=== PATIENT | female | born 1985 | race Caucasian/White ===

== ENCOUNTER 2023-02-15 12:29 | Outpatient (OUT) | payer OTHER, SELFPAY ==
--- NOTE | 2023-02-15 12:32 | US_ITS ---
The [address] [address] Patient Name: ELIS GUTIÉRREZ MRN: [id number] date: 1985 Sex: F Assigned Patient Location: Current Patient Location: LAB Accession/Order Number: [id number] Exam Date: 02/15/2023 12:32 Report Date: 02/15/2023 16:19 At the request of: ADENIKE GUILLORY Procedure: US OB <= 14 weeks fetus EXAMINATION: US OB <= 14 weeks fetus HISTORY: DATING COMPARISON: No relevant comparison available. FINDINGS: GESTATIONAL SAC: Present and normal appearing. YOLK SAC: Present and normal appearing. POLE: Present and normal appearing. CARDIAC: Present. UTERUS: Normal size and appearance. OVARIES: Right: Not seen. Left: Normal. CERVIX: (Not measured) cm in length and closed. CUL-DE-SAC: Normal. OTHER: None. AGE BY LMP: 13 weeks 1 day STEVE BY LMP: 08/22/2023 AGE BY US CRL: 12 weeks 5 days STEVE BY US CRL: 08/25/2023 US/US OB <= 14 weeks fetus IMPRESSION: 1. Single live intrauterine . Electronically authenticated by: RICH KNOTT Date: 02/15/2023 16:19
== END 2023-02-15 12:30 | disposition home or self-care (01) ==
LOC: US 12:29
PROVIDERS: PCP Internal Medicine; Visit Provider Obstetrics & Gynecology
DX: Z34.91 Encounter for supervision of normal pregnancy, unspecified, first trimester (principal); Z3A.14 14 weeks gestation of pregnancy; Z31.430 Encounter of female for testing for genetic disease carrier status for procreative management; N91.2 Amenorrhea, unspecified; N92.6 Irregular menstruation, unspecified
CPT/HCPCS: 36415; 76801; 83036; 84443; 85025; 86592; 86706; 86762; 86803; 86850; 86900; 86901; 87086; 87389

== ENCOUNTER 2023-02-15 13:44 | Outpatient (OUT) | payer OTHER, SELFPAY ==
[2023-02-15 14:28] LABS: Basophils Absolute Auto 0.1 10^3/uL (0.0-0.1); Basophils Percent Auto 0.5 % (0.2-2.0); Eosinophils Absolute Auto 0.1 10^3/uL (0.0-0.7); Eosinophils Percent Auto 0.7 % (0.9-7.0); Hematocrit 40.6 % (36.0-48.0); Hemoglobin 13.7 g/dL (12.0-16.0); Immature Granulocytes Abs Auto 0.15 10^3/uL (0.00-0.03); Immature Granulocytes Pct Auto 1.4 % (0.0-0.5); Lymphocytes Absolute Auto 1.6 10^3/uL (1.2-3.8); Lymphocytes Percent Auto 14.8 % (20.5-60.0); Mean Corpuscular HGB Conc 33.7 g/dL (29.9-35.2); Mean Corpuscular Volume 88.8 fL (81.0-99.0); Mean Platelet Volume 10.3 fL (9.5-13.5); Monocytes Absolute Auto 0.6 10^3/uL (0.3-0.8); Monocytes Percent Auto 5.3 % (1.7-12.0); Neutrophils Absolute Auto 8.5 10^3/uL (1.4-6.5); Neutrophils Percent Auto 77.3 % (43.0-75.0); Platelet Count 299 10^3/uL (150-450); Red Blood Count 4.57 10^6/uL (4.20-5.40); Red Cell Distribution Width 13.6 % (11.0-15.0)
[2023-02-15 14:33] LABS: Estimated Average Glucose 100 mg/dL; Glycohemoglobin A1C 5.1 % (4.5-6.2)
[2023-02-15 15:35] LABS: Thyroid Stimulating Hormone 1.881 uIU/mL (0.358-3.740)
[2023-02-16 06:10] LABS: HBsAg Screen Negative (Negative); HCV Ab Non Reactive (Non Reactive); HIV Ab/p24 Ag Screen Non Reactive (Non Reactive)
[2023-02-16 08:11] LABS: Rubella Antibodies, IgG 2.18 index (Immune >0.99)
== END 2023-02-15 13:45 | disposition home or self-care (01) ==
LOC: LAB 13:45
PROVIDERS: PCP Internal Medicine; Visit Provider Obstetrics & Gynecology
DX: Z34.81 Encounter for supervision of other normal pregnancy, first trimester (principal); Z31.430 Encounter of female for testing for genetic disease carrier status for procreative management; N91.2 Amenorrhea, unspecified
CPT/HCPCS: 36415; 83036; 84443; 85025; 86592; 86706; 86762; 86803; 86850; 86900; 86901; 87086; 87389

== ENCOUNTER 2023-03-07 21:32 | Outpatient (REF) | payer OTHER, SELFPAY ==
[2023-03-13 13:10] LABS: Age Gdln ACOG Testing Note (.); HPV Aptima Negative (Negative); IGP, Aptima HPV, rfx 16/18,45 Note (.)
== END 2023-03-07 21:33 | disposition home or self-care (01) ==
LOC: LAB 21:32
PROVIDERS: PCP Internal Medicine; Visit Provider Obstetrics & Gynecology
DX: Z01.419 Encounter for gynecological examination (general) (routine) without abnormal findings (principal)
CPT/HCPCS: 87624; G0145

== ENCOUNTER 2023-06-04 14:08 | Outpatient (OUT) | payer OTHER, SELFPAY ==
[2023-06-04 15:22] LABS: Basophils Absolute Auto 0.1 10^3/uL (0.0-0.1); Basophils Percent Auto 0.3 % (0.2-2.0); Eosinophils Absolute Auto 0.2 10^3/uL (0.0-0.7); Eosinophils Percent Auto 1.2 % (0.9-7.0); Hematocrit 34.2 % (36.0-48.0); Hemoglobin 11.3 g/dL (12.0-16.0); Immature Granulocytes Abs Auto 1.43 10^3/uL (0.00-0.03); Immature Granulocytes Pct Auto 9.3 % (0.0-0.5); Lymphocytes Absolute Auto 1.9 10^3/uL (1.2-3.8); Lymphocytes Percent Auto 12.1 % (20.5-60.0); Mean Corpuscular Hemoglobin 30.1 pg (26.7-34.0); Mean Platelet Volume 10.4 fL (9.5-13.5); Monocytes Absolute Auto 0.8 10^3/uL (0.3-0.8); Monocytes Percent Auto 5.3 % (1.7-12.0); Neutrophils Absolute Auto 11.1 10^3/uL (1.4-6.5); Neutrophils Percent Auto 71.8 % (43.0-75.0); Platelet Count 236 10^3/uL (150-450); Red Blood Count 3.76 10^6/uL (4.20-5.40); Red Cell Distribution Width 14.4 % (11.0-15.0); White Blood Count 15.4 10^3/uL (4.0-11.0)
[2023-06-04 16:51] LABS: Glucose 1 Hour 116 mg/dL
== END 2023-06-04 14:09 | disposition home or self-care (01) ==
LOC: LAB 14:09
PROVIDERS: PCP Internal Medicine; Visit Provider Obstetrics & Gynecology
DX: Z34.92 Encounter for supervision of normal pregnancy, unspecified, second trimester (principal)
CPT/HCPCS: 36415; 82950; 85025

== ENCOUNTER 2023-06-27 07:08 | Outpatient (OUT) | payer OTHER, SELFPAY ==
--- NOTE | 2023-06-27 | US_ITS ---
[address] [address] Patient Name: ELIS GUTIÉRREZ MRN: [id number] date: 1985 Sex: F Assigned Patient Location: [facility] Current Patient Location: Accession/Order Number: [id number] Exam Date: 06/27/2023 11:30 Report Date: 06/28/2023 02:44 At the request of: ADENIKE GUILLORY Procedure: US OB BPP w non-stress EXAMINATION: US OB BPP w non-stress HISTORY: THIRD TRIMESTER Z34.93 COMPARISON: Ultrasound OB 02/15/2023 TECHNIQUE: Ultrasound biophysical profile was performed in the radiology department. BREATHING MOVEMENTS: 0.0 GROSS BODY MOVEMENTS: 2.0 TONE: 2.0 QUALITATIVE AMNIOTIC FLUID VOLUME: 2.0 PRESENTATION: CEPHALIC HEART RATE: 133.7 bpm bpm. AMNIOTIC FLUID VOLUME: 15.5 cm GESTATIONAL AGE: 32 weeks 0 days CONCLUSION: Total biophysical profile score 6.0. Electronically authenticated by: RICH KNOTT Date: 06/28/2023 02:44
[2023-06-27 12:13] VITALS: BP 130/72; PULSE 84
== END 2023-06-27 12:40 | disposition home or self-care (01) ==
LOC: US 07:08 → FBC 11:22
PROVIDERS: PCP Internal Medicine; Visit Provider Obstetrics & Gynecology
DX: Z34.93 Encounter for supervision of normal pregnancy, unspecified, third trimester (principal); Z3A.32 32 weeks gestation of pregnancy
CPT/HCPCS: 76818

== ENCOUNTER 2023-06-28 08:07 | Outpatient (OUT) | payer OTHER, SELFPAY ==
--- NOTE | 2023-06-28 09:34 | US_ITS ---
[address] [address] Patient Name: ELIS GUTIÉRREZ MRN: [id number] date: 1985 Sex: F Assigned Patient Location: [facility] Current Patient Location: Accession/Order Number: [id number] Exam Date: 06/28/2023 10:00 Report Date: 06/28/2023 10:44 At the request of: ADENIKE GUILLORY Procedure: US OB BPP w non-stress EXAM: US OB BPP w non-stress HISTORY: . ama . COMPARISON: None. FINDINGS: There is evidence of an intrauterine in the cephalic presentation with a heart rate of 132. Amniotic fluid index is 15 cm. breathing 2, tone 2, movement 2, and amniotic fluid volume 2 for a score of 8/8. US/US OB BPP w non-stress IMPRESSION: 1. Intrauterine in the cephalic presentation with a heart rate of 132. 2. Biophysical profile 8/8. Electronically authenticated by: ANDRIY VELARDE Date: 06/28/2023 10:44
[2023-06-28 09:40] VITALS: BP 134/90; PULSE 100
[2023-06-28 09:55] VITALS: BP 142/83; PULSE 101
--- OUTSIDE RECORDS SUMMARY | 2023-07-24 23:35 | XMS_ITS | CCD ---
Author Name Unknown Address [address] [place] [address] Organization [facility] Care Team Providers Care [place] Worker Name Role Phone WEST, DR ANDRIY Polo Consulting Unavailable FAWWAD, KHAN Admitting Unavailable FAWWAD, KHAN Primary Care Unavailable FAWWAD, KHAN Attending Unavailable FAWWAD, KHAN Consulting Unavailable FAWWAD, KHAN Attending Unavailable FAWWAD, KHAN Admitting Unavailable FAWWAD, KHAN Primary Care Unavailable FAWWAD, KHAN Consulting Unavailable KARASIBerto, DR RIVERA Consulting Unavailable KARASIK, DR RIVERA Attending Unavailable KARASIK, DR RIVERA Admitting Unavailable Sivan, Adenike Attending Provider ANGELIC KAUR Attending Unavailable SIVAN, ADENIKE Attending Unavailable SIVAN, ADENIKE Attending Unavailable Fawwad, Khan Primary Care Unavailable Sivan, Adenike Attending Unavailable Sivan, Adenike Admitting Unavailable Problems Active Problems Problem Classification Problem Date Documented Da te Episodic/Chronic Headache; including migraine (4 sources) Migraine, unspecified, not intractable, without status migrainosus; Translations: [MIGRAINE UNS NOT INTRACT W/O SM] Onset: 03-18-2021 Chronic Mood disorders (1 source) Major depressive disorder, single episode, severe without psychotic features; Translations: [WOLFGANG DEPRESS 1 EPIS SEV W/O PSYCHOT] Onset: 02-01-2021 Chronic Other and delivery including normal (1 source) Encounter for supervision of normal , unspecified, third trimester; Translations: [Encounter for supervision of normal , unspecified, third trimester] Onset: 07-04-2023 Episodic Other screening for suspected conditions (not mental disorders or infectious disease) (6 sources) Encounter for screening for lipoid disorders; Translations: [Encounter for screening for diabetes mellitus] Onset: 09-17-2020 Episodic Past or Other Problems Problem Classification Problem Date Documented Date Episodic/Chronic Immunizations and screening for infectious disease (1 source) Encounter for screening for human papillomavirus (HPV); Translations: [ENC SCREENING HUMAN PAPILLOMAVIRUS] Onset: 09-20-2020 Episodic Results Test Name Value Interpretation Reference Range Karo mak Fibrinogenon 07-04-2023 Fibrinogen 668 mg/dL High 200-393 [facility] Comment on above: Result Comment: A he matocrit value greater than 55% may lead to inaccurate results in coagulation testing. Patients having hematocrit values >55% require a special collection tube for coagulation studies. Please contact the laboratory at [phone] for redraw instructions. PERFORMED BY: [place] [id number] PATHOLOGIST [employer]MI[employer] LETHA DOMÍNGUEZ M.D. Performed By: #### F IB-C #### [address] Fibrinogen [Mass/volume] in Platelet poor plasma by Coagulation assayOrdered By: Adenike Finnegan on 07-04-2023 Fibrinogen Coag (PPP) [Mass/Vol] 668 mg/dL 200 -393 [facility] Comment on above: A hematocrit value g reater than 55% may lead to inaccurate results in coagulation testing. Patients having hematocrit values >55% require a special collection tube for coagulation studies. Please contact the laboratory at [phone] HEAD WO CONon 03-18-2021 CT HEAD WO CON EXAMINATION: CT HEAD WO CON, 03/18/2021 1:25 PM EDT HISTORY: Migraine , blurred vision COMPARISON: None. TECHNIQUE: CT scan of the head was performed without IV contrast. CT dose reduction technique was used, including Automated Exposure Control. FINDINGS: BRAIN: No edema, hemorrhage, mass, acute infarction, or inappropriate atrophy. CSF SPACES: No hydrocephalus, subarachnoid hemorrhage, or mass. Appropriate for age. SKULL: No fracture or mass. Areas of endosteal scalloping in the inner table possibly related to arachnoid granulations SINUSES: No significant mucosal thickening or fluid on the limited views. ORBITS: No appreciable abnormality on the limited views. OTHER: Multiple well-circumscribed scalp masses with calcifications of unknown etiology, the largest visualized on axial image 46 on the right measuring 1.4 cm IMPRESSION: No acute intracranial abnormality Partially calcified scalp masses, clinically correlate Electronically authenticated by: ANDRIY HIRSCH Date: 2021-03-18 17:02 Normal [facility] CBC AUTO DIFFon 01-27-2021 BASO # 0.1 103/ul Normal 0.0-0.1 [facility] Comment on above: Performed By: #### C BC #### [facility] [address] [id number] Jodi Taty Basophils/100 WBC (Bld) 1.1 % Normal 0.2-2.0 [facility] Comment on above: Performed By: #### C BC #### [facility] [address] [place] [address] Jodi Taty EO # 0.2 103/ul Normal 0.0-0.7 [facility] Comment on above: Performed By: #### C BC #### [facility] [address] [place], [place] [id number] Jodi Taty Eosinophils/100 WBC (Bld) 2.0 % Normal 0.9-7.0 [facility] Comment on above: Performed By: #### C BC #### [facility] [address] [place], [place] [address] Jodi Taty Erythrocyte distribution wid th (RBC) [Ratio] 13.8 % Normal 11.0-15.0 [facility] Comment on above: Performed By: #### C BC #### [facility] [address] [place], [place] [address] Jodi Taty Hematocrit (Bld) [Volume fraction] 47.4 % Normal 3 6.0-48.0 [facility] Comment on above: Performed By: #### C BC #### [facility] [address] [place], [place] [address] Jodi Taty Hemoglobin (Bld) [Mass/Vol] 15.3 g/dL Normal 12.0-16. 0 [facility] Comment on above: Performed By: #### C BC #### [facility] [address] [id number] Jodi Taty IG # 0.26 10e3/ul Critically high 0.00-0.03 [facility] Comment on above: Performed By: #### C BC #### [facility] [address] [place], [place] [address] Jodi Taty IG % 2.3 % Critically high 0.0-0.5 [facility] Comment on above: Performed By: #### C BC #### [facility] [address] [place], [place] [address] Jodi Taty LYMPH # 2.4 103/ul Normal 1.2-3.8 [facility] Comment on above: Performed By: #### C BC #### [facility] [address] [place], [place] [address] Jodi Taty Lymphocytes/100 WBC (Bld) 21.4 % Normal 20.5-60.0 [facility] Comment on above: Performed By: #### C BC #### [facility] [address] [place] [address] Jodi Taty MANUAL DIFF REQ NO Normal [facility] Comment on above: Performed By: #### C BC #### [facility] [address] [place], [place] [address] Jodi Taty MCH (RBC) [Entitic mass] 29.5 pg Normal 26.7-34.0 [facility] Comment on above: Performed By: #### C BC #### [facility] [address] [place], [place] [address] Jodi Taty MCHC (RBC) [Mass/Vol] 32.3 g/dL Normal 29.9-35.2 [facility] Comment on above: Performed By: #### C BC #### [facility] [address] [place], [place] [address] Jodi Taty MCV (RBC) [Entitic vol] 91.5 fL Normal 81.0-99.0 [facility] Comment on above: Performed By: #### C BC #### [facility] [address] [place] [address] Jodi Taty MONO # 0.6 103/ul Normal 0.3-0.8 [facility] Comment on above: Performed By: #### C BC #### [facility] [address] [place], [place] [address] Jodi Posey Monocytes/100 WBC (Bld) 5.3 % Normal 1.7-12.0 [facility] Comment on above: Performed By: #### C BC #### [facility] [address] [place], [place] [address] Jodi Posey NEUT # 7.6 103/ul Critically high 1.4-6.5 [facility] Comment on above: Performed By: #### C BC #### [facility] [address] [place], [place] [address] Jodi Posey Neutrophils/100 WBC (Bld) 67.9 % Normal 43.0-75.0 [facility] Comment on above: Performed By: #### C BC #### [facility] [address] [place], [place] [address] Jodi Posey Platelet mean volume (Bld) [ Entitic vol] 11.2 fL Normal 9.5-13.5 [facility] Comment on above: Performed By: #### C BC #### [facility] [address] [place], [place] [address] Jodi Posey PLT 277 103/ul Normal 150-450 [facility] Comment on above: Performed By: #### C BC #### [facility] [address] [place], [place] [address] Jodi Posey RBC 5.18 106/ul Normal 4.20-5.40 [facility] Comment on above: Performed By: #### C BC #### [facility] [address] [place], [place] [address] Jodi Taty WBC 11.3 103/ul Critically high 4.0-11.0 The [facility] Comment on above: Performed By: #### C BC #### [facility] [address] [place], [place] [address] Jodi Posey GLYCOHEMOGLOBIN A1Con 2020 ADA RECOMMENDATION ADA THERAPEUTIC TARG ET 6.0 - 7.0 ACTION SUGGESTED > 7.0 Normal [facility] Comment on above: Performed By: #### A 1C #### [facility] [address] [place], [place] [address] Jodi Taty Glucose [Mass/Vol] 123 mg/dL Normal [facility] Comment on above: Performed By: #### A 1C #### [facility] [address] [place], [place] [address] Jodi Taty HbA1c (Bld) [Mass fraction] 5.9 % Normal <=6.0 [facility] Comment on above: Performed By: #### A 1C #### [facility] [address] [place] [address] Jodi Taty LIPID PROFILEon 01-27-2021 CHOL-HDL RATIO NORM SEE BELOW Normal [facility] Comment on above: Result Comment: 3.3 - 4.4 LOW RISK 4.4 - 7.1 AVERAGE RISK 7.1 - 11.0 MODERATE RISK >11.0 HIGH RISK Performed By: #### C MP, LIPID, TSH #### [facility] [address] [place] [address] Jodi Taty Cholesterol [Mass/Vol] 185 mg/dL Normal <=200 [facility] Comment on above: Performed By: #### C MP, LIPID, TSH #### [facility] [address] [place] [address] Jodi Taty Cholesterol in HDL [Mass/Vol] 37 mg/dL Normal [facility] Comment on above: Performed By: #### C MP, LIPID, TSH #### [facility] [address] [place] [address] Jodi Taty Cholesterol in LDL [Mass/Vol] 112.4 mg/dL Normal [facility] Comment on above: Performed By: #### C MP, LIPID, TSH #### [facility] [address] [place] [address] Jodi Taty Cholesterol.total/Cholestero l in HDL [Mass ratio] 5.0 {ratio} Normal [facility] Comment on above: Performed By: #### C MP, LIPID, TSH #### [facility] [address] [id number] Jodi Taty HDL NORMAL > or = 60 mg/dl - LO W CARDIOVASCULAR RISK <40 mg/dl - HIGH CARDIOVASCULAR RISK Normal [facility] Comment on above: Performed By: #### C MP, LIPID, TSH #### [facility] [address] [phone] Jodi Taty LDL CALC NORMAL SEE BELOW Normal [facility] Comment on above: Result Comment: <100 mg/dl OPTIMAL 100 - 129 mg/dl NEAR OR ABOVE OPTIMAL 130 - 159 mg/dl BORDERLINE HIGH 160 - 189 mg/dl HIGH >190 mg/dl VERY HIGH Performed By: #### C MP, LIPID, TSH #### [facility] [address] [address] Jodi Taty Triglyceride [Mass/Vol] 178 mg/dL Critically high <=150 [facility] Comment on above: Performed By: #### C MP, LIPID, TSH #### [facility] [address] [address] Jodi Taty VLDL CALC 35.6 mg/dL Normal [facility] Comment on above: Performed By: #### C MP, LIPID, TSH #### [facility] [address] [phone] Jodi Taty PROF 14(COMP METB)on 021 Albumin [Mass/Vol] 3.8 g/dL Normal 3.5-5.0 [facility] Comment on above: Performed By: #### C MP, LIPID, TSH #### [facility] [address] [place], [place] [address] Jodi Taty Albumin/Globulin [Mass ratio] 1.1 {ratio} Normal [facility] Comment on above: Performed By: #### C MP, LIPID, TSH #### [facility] [address] [phone] Jodi Taty ALP [Catalytic activity/Vol] 68 U/L Normal 38-126 [facility] Comment on above: Performed By: #### C MP, LIPID, TSH #### [facility] [address] [place], [place] [address] Jodi Taty ALT [Catalytic activity/Vol] 30 U/L Normal 9-52 [facility] Comment on above: Performed By: #### C MP, LIPID, TSH #### [facility] [address] [address] Jodi Taty Anion gap [Moles/Vol] 12.8 mmol/L Normal [facility] Comment on above: Performed By: #### C MP, LIPID, TSH #### [facility] [address] [address] Jodi Taty AST [Catalytic activity/Vol] 19 U/L Normal 14-36 [facility] Comment on above: Performed By: #### C MP, LIPID, TSH #### [facility] [address] [address] Jodi Taty Bilirubin [Mass/Vol] 0.2 mg/dL Normal 0.2-1.3 [facility] Comment on above: Performed By: #### C MP, LIPID, TSH #### [facility] [address] [place] [address] Jodi Taty Calcium [Mass/Vol] 9.3 mg/dL Normal 8.4-10.2 [facility] Comment on above: Performed By: #### C MP, LIPID, TSH #### [facility] [address] [address] Jodi Taty Chloride [Moles/Vol] 104 mmol/L Normal 98-107 [facility] Comment on above: Performed By: #### C MP, LIPID, TSH #### [facility] [address] [address] Jodi Taty CO2 [Moles/Vol] 29.2 mmol/L Normal 22.0-30.0 [facility] Comment on above: Performed By: #### C MP, LIPID, TSH #### [facility] [address] [address] Jodi Taty Creatinine [Mass/Vol] 0.80 mg/dL Normal 0.52-1.04 [facility] Comment on above: Performed By: #### C MP, LIPID, TSH #### [facility] [address] [place], [place] [address] Jodi Taty EGFR-AF STATELESS >60 Normal >=60 [facility] Comment on above: Performed By: #### C MP, LIPID, TSH #### [facility] [address] [phone] Jodi Taty EGFR-NON AF STATELESS >60 Normal >=60 [facility] Comment on above: Performed By: #### C MP, LIPID, TSH #### [facility] [address] [phone] Jodi Taty Globulin (S) [Mass/Vol] 3.4 g/dL Normal T [facility] Comment on above: Performed By: #### C MP, LIPID, TSH #### [facility] [address] [address] Jodi Taty Glucose [Mass/Vol] 89 mg/dL Normal 74-106 [facility] Comment on above: Performed By: #### C MP, LIPID, TSH #### [facility] [address] [address] Jodi Taty Potassium [Moles/Vol] 4.0 mmol/L Normal 3.4-5.0 [facility] Comment on above: Performed By: #### C MP, LIPID, TSH #### [facility] [address] [phone] Jodi Taty Protein [Mass/Vol] 7.2 g/dL Normal 6.1-8.2 [facility] Comment on above: Performed By: #### C MP, LIPID, TSH #### [facility] [address] [place] [address] Jodi Taty Sodium [Moles/Vol] 142 mmol/L Normal 137-145 [facility] Comment on above: Performed By: #### C MP, LIPID, TSH #### [facility] [address] [phone] Jodi Taty Urea nitrogen [Mass/Vol] 11.0 mg/dL Normal 7.0-17.0 [facility] Comment on above: Performed By: #### C MP, LIPID, TSH #### [facility] [address] [place] [address] Jodi Posey Urea nitrogen/Creatinine [Mass ratio] 13.8 mg/mg Normal [facility] Comment on above: Performed By: #### C MP, LIPID, TSH #### [facility] [address] [place], [place] [address] Jodi Posey TSHon 01-27-2021 TSH 3.187 uIU/mL Normal 0.470-4.680 [facility] Comment on above: Performed By: #### C MP, LIPID, TSH #### [facility] [address] [place] [address] Jodi Posey TSH RANGE SEE BELOW Normal [facility] Comment on above: Result Comment: <0.3 4 UIU/ml HYPERTHYROID 0.34-5.60 UIU/ml EUTHYROID >5.60 UIU/ml HYPOTHYROID Performed By: #### C MP, LIPID, TSH #### [facility] [address] [place] [address] Jodi Posey PAP ACOG PANEL 2: 30 to 65on 09-22-2020 . . Normal [facility] Comment on above: Result Comment: Perf ormed at: WB Performed By: #### [id number] #### [facility] [address] [place] [address] Jodi Posey Age Gdln ACOG Testing 30-65 Normal [facility] Comment on above: Performed By: #### [id number] #### [facility] [address] [place], [place] [address] Jodi Posey DIAGNOSIS: Comment Normal [facility] Comment on above: Result Comment: NEGA TIVE FOR INTRAEPITHELIAL LESION OR MALIGNANCY. MICROORGANISMS MORPHOLOGICALLY CONSISTENT WITH ACTINOMYCES SPECIES ARE PRESENT. SHIFT IN DARI SUGGESTIVE OF BACTERIAL VAGINOSIS. Performed at: WB Performed By: #### [id number] #### [facility] [address] [place] [address] Jodi Posey HPV Aptima Negative Normal Negative [facility] Comment on above: Result Comment: This nucleic acid amplification test detects fourteen high-risk HPV types (16,18,31,33,35,39,45,51,52,56,58,59,66,68) without differentiation. Performed at: =G Performed By: #### [id number] #### [facility] [address] [place] [address] Jodi Posey Methodology: Comment Normal [facility] Comment on above: Result Comment: This liquid based ThinPrep(R) pap test was screened with the use of an image guided system. Performed at: WB Performed By: #### [id number] #### [facility] [address] [address] Jodi Posey Note: Comment Normal [facility] Comment on above: Result Comment: The Pap smear is a screening test designed to aid in the detection of premalignant and malignant conditions of the uterine cervix. It is not a diagnostic procedure and should not be used as the sole means of detecting cervical cancer. Both false-positive and false-negative reports do occur. . Performed at: WB Performed By: #### [id number] #### [facility] [address] [place] [address] Jodi Posey Performed by: Comment Normal [facility] Comment on above: Result Comment: Camila Navarro, Elect Equip Maint Eng (ASCP) Performed at: WB Performed By: #### [id number] #### [facility] [address] [place] [address] Jodi Posey Specimen adequacy: Comment Normal [facility] Comment on above: Result Comment: Sati sfactory for evaluation. No endocervical component is identified. Performed at: WB Performed By: #### [id number] #### [facility] [address] [place], [place] [address] Jodi Posey Encounters Encounter Date Encounter Type Care Provider Facility Start: 07-09-2023 End: 07-09-2023 ambulatory ADENIKE FINNEGAN Not Available Start: 07-04-2023 End: 07-04-2023 ambulatory Shaikh Thu Facility:[facility] Start: 07-04-2023 End: 07-04-2023 ambulatory Adenike Finnegan Work Phone: [facility] Work Phone: Start: 07-04-2023 End: 07-04-2023 Departed Referred Adenike Finnegan Work Phone: [facility] [place] Work Phone: Start: 07-03-2023 End: 07-03-2023 ambulatory ANGELIC KAUR Not Available Start: 06-19-2023 End: 06-19-2023 ambulatory ADENIKE FINNEGAN Not Available Start: 03-18-2021 End: 03-19-[address] ANDRIY HIRSCH Facility:[facility] Start: 02-01-2021 Encounter for genera l adult medical examination without abnormal findings [facility] Start: 01-27-2021 End: 01-28-2021 ambulatory SHAIKH THU Facility:[facility] Start: 01-27-2021 End: 01-28-2021 Encounter for general adult medical examination without abnormal findings [facility] Facility:[facility] Start: 09-17-2020 End: 09-17-[address] NICOLE RIDDLE Facility:[facility] Payers Date Payer Category Payer Self-pay 2023 Unknown [id number] 1985 Unknown [id number] 2.16.84 [id number] 1985 Unknown [id number] .16.84 [id number] 1985 Unknown [id number] .16.84 [id number] 1985 Unknown [id number] 1985 Unknown [id number] 1985 Unknown [id number] 1959 Unknown [id number] 1959 Unknown [id number] Unknown [id number] .16.8 [id number] Social History Date Type Detail Facility Tobacco smoking stat us NHIS Unknown if ever smoked [facility] Work Phone: Start: 1985 Sex Assigned At Female F [facility] Evaluation note Note Date & Type Note Facility Evaluation note No assessment information availa ble [facility] Work Phone: Summary Purpose Family History No Family History Records FoundNo Family History Records FoundNo Family History Records Found Advance Directives No Advanced Directives Records FoundNo Advanced Directives Records FoundNo Advanced Directives Records Found Additional Source Comments INFORMATION SOURCE (unrecogn ized section and content) DATE CREATED AUTHOR 04/02/2021 [facility] DATE CREATED AUTHOR AUTHOR'S ORGANIZ ATION 07/11/2023 [facility] EPIC DATE CREATED AUTHOR AUTHOR'S ORGANIZ ATION 07/13/2023 [facility] Care Teams (unrecognized sec tion and content) Team Status: Inactive Member Role Status Dates Adenike Finnegan Attending Provider Active Goals (unrecognized section and content) Goals may be documented in a n alternate section FOR RECORDS PERTAINING TO PATIENTS WHO ARE OR HAVE BEEN ENROLLED IN A CHEMICAL DEPENDENCY/SUBSTANCEABUSE PROGRAM, SOME INFORMATION MAY BE OMITTED. This clinical summary was aggregated from multiple sources. Caution should be exercised in using it in the provision of clinical care. This summary normalizes information from multiple sources, and as a consequence, information in this document may materially change the coding, format and clinical context of patient data. In addition, data may be omitted in some cases. CLINICAL DECISIONS SHOULD BE BASED ON THE PRIMARY CLINICAL RECORDS. [employer] [facility]. provides no warranty or guarantee of the accuracy or completeness of information in this document.
== END 2023-06-28 10:34 | disposition home or self-care (01) ==
LOC: US 08:08 → FBC 09:33
PROVIDERS: PCP Internal Medicine; Visit Provider Obstetrics & Gynecology
DX: Z34.93 Encounter for supervision of normal pregnancy, unspecified, third trimester (principal)
CPT/HCPCS: 76818

== ENCOUNTER 2023-06-30 07:02 | Outpatient (OUT) | payer OTHER, SELFPAY ==
[2023-06-30 12:20] VITALS: BP 123/81; PULSE 103
--- OUTSIDE RECORDS SUMMARY | 2023-07-24 23:59 | XMS_ITS | CCD ---
Author Name Unknown Address [address] [place] [address] Organization [facility] Care Team Providers Care Seat Builder Name Role Phone WEST, DR ANDRIY Polo Consulting Unavailable FAWWAD, KHAN Admitting Unavailable FAWWAD, KHAN Primary Care Unavailable FAWWAD, KHAN Attending Unavailable FAWWAD, KHAN Consulting Unavailable FAWWAD, KHAN Attending Unavailable FAWWAD, KHAN Admitting Unavailable FAWWAD, KHAN Primary Care Unavailable FAWWAD, KHAN Consulting Unavailable KARASIBerto, DR RIVERA Consulting Unavailable KARASIK, DR RIVERA Attending Unavailable KARASIK, DR RIVERA Admitting Unavailable Sivan, Adenike Attending Provider [phone] ANGELIC KARU Attending Unavailable SIVAN, ADENIKE Attending Unavailable SIVAN, [...] Fibrinogenon 07-04-2023 Fibrinogen 668 mg/dL High 200-393 [facility] Comment on above: Result Comment: A he matocrit value greater than 55% may lead to inaccurate results in coagulation testing. Patients having hematocrit values >55% require a special collection tube for coagulation studies. Please contact the laboratory at [phone] for redraw instructions. PERFORMED BY: [place] [address] PATHOLOGIST HELMINTHOLOGY TEACHER LETHA DOMÍNGUEZ M.D. Performed By: #### F IB-C #### [address] Fibrinogen [Mass/volume] in Platelet poor plasma by Coagulation assayOrdered By: Adenike Finnegan on 07-04-2023 Fibrinogen Coag (PPP) [Mass/Vol] 668 mg/dL 200 -393 [facility] Comment on above: A hematocrit value g reater than 55% may lead to inaccurate results in coagulation testing. Patients having hematocrit values >55% require a special collection tube for coagulation studies. Please contact the laboratory at [phone] HEAD WO CONon [...] ANDRIY HIRSCH Date: 2021-03-18 17:02 Normal [facility] CBC AUTO DIFFon 01-27-2021 BASO # 0.1 103/ul Normal 0.0-0.1 [facility] Comment on above: Performed By: #### C BC #### [facility] [address] [id number] Jodi Taty Basophils/100 WBC (Bld) 1.1 % Normal 0.2-2.0 [facility] Comment on above: Performed By: #### C BC #### [facility] [address] [place] [address] Jodi Taty EO # 0.2 103/ul Normal 0.0-0.7 [facility] Comment on above: Performed By: #### C BC #### [facility] [address] [place], [place] [id number] Jodi Taty Eosinophils/100 WBC (Bld) 2.0 % Normal 0.9-7.0 [facility] Comment on above: Performed By: #### C BC #### [facility] [address] [place], [place] [address] Jodi Taty Erythrocyte distribution wid th (RBC) [Ratio] 13.8 % Normal 11.0-15.0 [facility] Comment on above: Performed By: #### C BC #### [facility] [address] [place], [place] [address] Jodi Taty Hematocrit (Bld) [Volume fraction] 47.4 % Normal 3 6.0-48.0 [facility] Comment on above: Performed By: #### C BC #### [facility] [address] [place], [place] [address] Jodi Taty Hemoglobin (Bld) [Mass/Vol] 15.3 g/dL Normal 12.0-16. 0 [facility] Comment on above: Performed By: #### C BC #### [facility] [address] [address] Jodi Taty IG # 0.26 10e3/ul Critically high 0.00-0.03 [facility] Comment on above: Performed By: #### C BC #### [facility] [address] [place], [place] [address] Jodi Taty IG % 2.3 % Critically high 0.0-0.5 [facility] Comment on above: Performed By: #### C BC #### [facility] [address] [place], [place] [address] Jodi Taty LYMPH # 2.4 103/ul Normal 1.2-3.8 [facility] Comment on above: Performed By: #### C BC #### [facility] [address] [place], [place] [address] Jodi Taty Lymphocytes/100 WBC (Bld) 21.4 % Normal 20.5-60.[address] [facility] Comment on above: Performed By: #### C BC #### [facility] [address] [place] [address] Jodi Taty MANUAL DIFF REQ NO Normal [facility] Comment on above: Performed By: #### C BC #### [facility] [address] [place], [place] [address] Jodi Taty MCH (RBC) [Entitic mass] 29.5 pg Normal 26.7-34.[address] [facility] Comment on above: Performed By: #### C BC #### [facility] [address] [place], [place] [address] Jodi Taty MCHC (RBC) [Mass/Vol] 32.3 g/dL Normal 29.9-35.2 [facility] Comment on above: Performed By: #### C BC #### [facility] [address] [place], [place] [address] Jodi Taty MCV (RBC) [Entitic vol] 91.5 fL Normal 81.0-99.0 [facility] Comment on above: Performed By: #### C BC #### [facility] [address] [place] [address] Jodi Taty MONO # 0.6 103/ul Normal 0.3-0.8 [facility] Comment on above: Performed By: #### C BC #### [facility] [address] [place], [place] [address] Jodi Posey Monocytes/100 WBC (Bld) 5.3 % Normal 1.7-12.0 [facility] Comment on above: Performed By: #### C BC #### [facility] [address] [place], [place] [address] Jodi Posey NEUT # 7.6 103/ul Critically high 1.4-6.5 [facility] Comment on above: Performed By: #### C BC #### [facility] [address] [place], [place] [address] Jodi Posey Neutrophils/100 WBC (Bld) 67.9 % Normal 43.0-75.[address] [facility] Comment on above: Performed By: #### C BC #### [facility] [address] [place], [place] [address] Jodi Posey Platelet mean volume (Bld) [ Entitic vol] 11.2 fL Normal 9.5-13.5 [facility] Comment on above: Performed By: #### C BC #### [facility] [address] [place], [place] [address] Jodi Posey PLT 277 103/ul Normal 150-450 [facility] Comment on above: Performed By: #### C BC #### [facility] [address] [place], [place] [address] Jodi Posey RBC 5.18 106/ul Normal 4.20-5.[address] [facility] Comment on above: Performed By: #### C BC #### [facility] [address] [place], [place] [address] Jodi Taty WBC 11.3 103/ul Critically high 4.0-11.0 [facility] Comment on above: Performed By: #### C BC #### [facility] [address] [place], [place] [address] Jodi Posey GLYCOHEMOGLOBIN A1Con 2020 ADA RECOMMENDATION ADA THERAPEUTIC TARG ET 6.0 - 7.0 ACTION SUGGESTED > 7.0 Normal [facility] Comment on above: Performed By: #### A 1C #### [facility] [address] [place], [place] [address] Jodi Taty Glucose [Mass/Vol] 123 mg/dL Normal [facility] Comment on above: Performed By: #### A 1C #### [facility] [address] [place], [place] [address] Jodi Taty HbA1c (Bld) [Mass fraction] 5.9 % Normal <=6.[address] [facility] Comment on above: Performed By: #### A 1C #### [facility] [address] [place] [address] Jodi Taty LIPID PROFILEon 01-27-2021 CHOL-HDL RATIO NORM SEE BELOW Normal [facility] Comment on above: Result Comment: 3.3 - 4.4 LOW RISK 4.4 - 7.1 AVERAGE RISK 7.1 - 11.0 MODERATE RISK >11.0 HIGH RISK Performed By: #### C MP, LIPID, TSH #### [facility] [address] [place] [address] Jodi Taty Cholesterol [Mass/Vol] 185 mg/dL Normal <=200 [facility] Comment on above: Performed By: #### C MP, LIPID, TSH #### [facility] [address] [place] [address] Jodi Taty Cholesterol in HDL [Mass/Vol] 37 mg/dL Normal [facility] Comment on above: Performed By: #### C MP, LIPID, TSH #### [facility] [address] [place] [address] Jodi Taty Cholesterol in LDL [Mass/Vol] 112.4 mg/dL Normal [facility] Comment on above: Performed By: #### C MP, LIPID, TSH #### [facility] [address] [place] [address] Jodi Taty Cholesterol.total/Cholestero l in HDL [Mass ratio] 5.0 {ratio} Normal [facility] [place] [facility] Comment on above: Performed By: #### C MP, LIPID, TSH #### [facility] [address] [id number] Jodi Taty HDL NORMAL > or = 60 mg/dl - LO W CARDIOVASCULAR RISK <40 mg/dl - HIGH CARDIOVASCULAR RISK Normal [facility] Comment on above: Performed By: #### C MP, LIPID, TSH #### [facility] [address] [address] Jodi Taty LDL CALC NORMAL SEE BELOW Normal [facility] Comment on above: Result Comment: <100 mg/dl OPTIMAL 100 - 129 mg/dl NEAR OR ABOVE OPTIMAL 130 - 159 mg/dl BORDERLINE HIGH 160 - 189 mg/dl HIGH >190 mg/dl VERY HIGH Performed By: #### C MP, LIPID, TSH #### [facility] [address] [address] Jodi Taty Triglyceride [Mass/Vol] 178 mg/dL Critically high <=150 [facility] Comment on above: Performed By: #### C MP, LIPID, TSH #### [facility] [address] [address] Jodi Taty VLDL CALC 35.6 mg/dL Normal [facility] Comment on above: Performed By: #### C MP, LIPID, TSH #### [facility] [address] [address] Jodi Taty PROF 14(COMP METB)on 021 Albumin [Mass/Vol] 3.8 g/dL Normal 3.5-5.0 [facility] Comment on above: Performed By: #### C MP, LIPID, TSH #### [facility] [address] [place], [place] [address] Jodi Taty Albumin/Globulin [Mass ratio] 1.1 {ratio} Normal [facility] Comment on above: Performed By: #### C MP, LIPID, TSH #### [facility] [address] [address] Jodi Taty ALP [Catalytic activity/Vol] 68 U/L Normal 38-126 [facility] Comment on above: Performed By: #### C MP, LIPID, TSH #### [facility] [address] [place], [place] [address] Jodi Taty ALT [Catalytic activity/Vol] 30 U/L Normal 9-[address] [facility] Comment on above: Performed By: #### C MP, LIPID, TSH #### [facility] [address] [address] Jodi Taty Anion gap [Moles/Vol] 12.8 mmol/L Normal Th [facility] Comment on above: Performed By: #### C MP, LIPID, TSH #### [facility] [address] [address] Jodi Taty AST [Catalytic activity/Vol] 19 U/L Normal 14-36 [facility] Comment on above: Performed By: #### C MP, LIPID, TSH #### [facility] [address] [address] Jodi Taty Bilirubin [Mass/Vol] 0.2 mg/dL Normal 0.2-1.[address] [facility] Comment on above: Performed By: #### C MP, LIPID, TSH #### [facility] [address] [place] [address] Jodi Taty Calcium [Mass/Vol] 9.3 mg/dL Normal 8.4-10.2 [facility] Comment on above: Performed By: #### C MP, LIPID, TSH #### [facility] [address] [address] Jodi Taty Chloride [Moles/Vol] 104 mmol/L Normal 98-[address] [facility] Comment on above: Performed By: #### C MP, LIPID, TSH #### [facility] [address] [address] Jodi Taty CO2 [Moles/Vol] 29.2 mmol/L Normal 22.0-30.0 [facility] Comment on above: Performed By: #### C MP, LIPID, TSH #### [facility] [address] [address] Jodi Taty Creatinine [Mass/Vol] 0.80 mg/dL Normal 0.52-1.[address] [facility] Comment on above: Performed By: #### C MP, LIPID, TSH #### [facility] [address] [place], [place] [address] Jodi Taty EGFR-AF SRI LANKAN >60 Normal >=60 [facility] Comment on above: Performed By: #### C MP, LIPID, TSH #### [facility] [address] [address] Jodi Taty EGFR-NON AF SRI LANKAN >60 Normal >=60 [facility] Comment on above: Performed By: #### C MP, LIPID, TSH #### [facility] [address] [phone] Jodi Taty Globulin (S) [Mass/Vol] 3.4 g/dL Normal T [facility] Comment on above: Performed By: #### C MP, LIPID, TSH #### [facility] [address] [address] Jodi Taty Glucose [Mass/Vol] 89 mg/dL Normal 74-[address] [facility] Comment on above: Performed By: #### C MP, LIPID, TSH #### [facility] [address] [address] Jodi Taty Potassium [Moles/Vol] 4.0 mmol/L Normal 3.4-5.[address] [facility] Comment on above: Performed By: #### C MP, LIPID, TSH #### [facility] [address] [address] Jodi Taty Protein [Mass/Vol] 7.2 g/dL Normal 6.1-8.2 [facility] Comment on above: Performed By: #### C MP, LIPID, TSH #### [facility] [address] [place] [address] Jodi Taty Sodium [Moles/Vol] 142 mmol/L Normal 137-[address] [facility] Comment on above: Performed By: #### C MP, LIPID, TSH #### [facility] [address] [address] Jodi Taty Urea nitrogen [Mass/Vol] 11.0 mg/dL Normal 7.0-17.0 [facility] Comment on above: Performed By: #### C MP, LIPID, TSH #### [facility] [address] [place] [address] Jodi Posey Urea nitrogen/Creatinine [Mass ratio] 13.8 mg/mg Normal [facility] Comment on above: Performed By: #### C MP, LIPID, TSH #### [facility] [address] [place], [place] [address] Jodi Posey TSHon 01-27-2021 TSH 3.187 uIU/mL Normal 0.470-4.680 [facility] Comment on above: Performed By: #### C MP, LIPID, TSH #### [facility] [address] [place] [address] Jodi Posey TSH RANGE SEE BELOW Normal [facility] Comment on above: Result Comment: <0.3 4 UIU/ml HYPERTHYROID 0.34-5.60 UIU/ml EUTHYROID >5.60 UIU/ml HYPOTHYROID Performed By: #### C MP, LIPID, TSH #### [facility] [address] [place] [address] Jodi Posey PAP ACOG PANEL 2: 30 to 65on 09-22-2020 . . Normal [facility] Comment on above: Result Comment: Perf ormed at: WB Performed By: #### [id number] #### [facility] [address] [place] [address] Jodi Posey Age Gdln ACOG Testing 30-65 Normal [facility] Comment on above: Performed By: #### [id number] #### [facility] [address] [place], [place] [address] Jodi Posey DIAGNOSIS: Comment Normal [facility] Comment on above: Result Comment: NEGA TIVE FOR INTRAEPITHELIAL LESION OR MALIGNANCY. MICROORGANISMS MORPHOLOGICALLY CONSISTENT WITH ACTINOMYCES SPECIES ARE PRESENT. SHIFT IN DARI SUGGESTIVE OF BACTERIAL VAGINOSIS. Performed at: WB Performed By: #### [id number] #### [facility] [address] [place] [address] Jodi Posey HPV Aptima Negative Normal Negative [facility] Comment on above: Result Comment: This nucleic acid amplification test detects fourteen high-risk HPV types (16,18,31,33,35,39,45,51,52,56,58,59,66,68) without differentiation. Performed at: =G Performed By: #### [id number] #### [facility] [address] [place] [address] Jodi Posey Methodology: Comment Normal [facility] Comment on above: Result Comment: This liquid based ThinPrep(R) pap test was screened with the use of an image guided system. Performed at: WB Performed By: #### [id number] #### [facility] [address] [address] Jodi Posey Note: Comment Normal [facility] [place] [facility] Comment on above: Result Comment: The Pap smear is a screening test designed to aid in the detection of premalignant and malignant conditions of the uterine cervix. It is not a diagnostic procedure and should not be used as the sole means of detecting cervical cancer. Both false-positive and false-negative reports do occur. . Performed at: WB Performed By: #### [id number] #### [facility] [address] [place] [address] Jodi Posey Performed by: Comment Normal [facility] [place] Comment on above: Result Comment: Camila Navarro, Java Consultant (ASCP) Performed at: WB Performed By: #### [id number] #### [facility] [address] [place] [address] Jodi Posey Specimen adequacy: Comment Normal [facility] Comment on above: Result Comment: Sati sfactory for evaluation. No endocervical component is identified. Performed at: WB Performed By: #### [id number] #### [facility] [address] [place], [place] [address] Jodi Posey Encounters Encounter Date Encounter Type Care Provider Facility Start: 07-09-2023 End: 07-09-2023 ambulatory ADENIKE FINNEGAN Not Available Start: 07-04-2023 End: 07-04-2023 ambulatory Shaikh Thu Facility:[facility] Start: 07-04-2023 End: 07-04-2023 ambulatory Adenike Finnegan Work Phone: [facility] Work Phone: Start: 07-04-2023 End: 07-04-2023 Departed Referred Adenike Finnegan Work Phone: [facility] [place] Work Phone: Start: 07-03-2023 End: 07-03-2023 ambulatory ANGELIC KAUR Not Available Start: 06-19-2023 End: 06-19-2023 ambulatory ADENIKE FINNEGAN Not Available Start: 03-18-2021 End: 03-19-[address] ANDRIY HIRSCH Facility:[facility] Start: 02-01-2021 Encounter for genera l adult medical examination without abnormal findings [facility] Start: 01-27-2021 End: 01-28-2021 ambulatory SHAIKH THU Facility:[facility] Start: 01-27-2021 End: 01-28-2021 Encounter for general adult medical examination without abnormal findings [facility] Facility[facility] Start: 09-17-2020 End: 09-17-[address] NICOLE RIDDLE Facility:[facility] Payers Date Payer Category Payer Self-pay 2023 Unknown [id number] 1985 Unknown [id number] 2.16.84 [id number] 1985 Unknown [id number] .16.84 [id number] 1985 Unknown [id number] .16.84 [id number] 1985 Unknown [id number] 1985 Unknown [id number] 1985 Unknown [id number]. [id number] 1959 Unknown [id number] 1959 Unknown [id number] Unknown [id number] .16.8 [id number] Social History Date Type Detail Facility Tobacco smoking stat us NHIS Unknown if ever smoked [facility] Work Phone: Start: 1985 Sex Assigned At Female F [facility] Evaluation note Note Date & Type Note Facility Evaluation note No assessment information availa ble [facility] Work Phone: Summary Purpose Family History No Family History Records FoundNo Family History Records FoundNo Family History Records Found Advance Directives No Advanced Directives Records FoundNo Advanced Directives Records FoundNo Advanced Directives Records Found Additional Source Comments INFORMATION SOURCE (unrecogn ized section and content) DATE CREATED AUTHOR 04/02/2021 [facility] DATE CREATED AUTHOR AUTHOR'S ORGANIZ ATION 07/11/2023 [facility] EPIC DATE CREATED AUTHOR AUTHOR'S ORGANIZ ATION 07/13/2023 [facility] Care Teams (unrecognized sec tion and content) [...] BE BASED ON THE PRIMARY CLINICAL RECORDS. [employer] [facility]. provides no warranty or guarantee of the accuracy or completeness of information in this document.
== END 2023-06-30 12:30 | disposition home or self-care (01) ==
LOC: FBCO 07:02 → FBC 11:27
PROVIDERS: PCP Internal Medicine; Visit Provider Obstetrics & Gynecology
DX: Z34.93 Encounter for supervision of normal pregnancy, unspecified, third trimester (principal)
CPT/HCPCS: 59025

== ENCOUNTER 2023-07-04 11:30 | Outpatient (OUT) | payer OTHER, SELFPAY ==
--- NOTE | 2023-07-04 | US_ITS ---
[address] [address] Patient Name: ELIS GUTIÉRREZ MRN: [id number] date: 1985 Sex: F Assigned Patient Location: [facility] Current Patient Location: [facility] Accession/Order Number: [id number] Exam Date: 07/04/2023 11:30 Report Date: 07/04/2023 15:41 At the request of: ADENIKE GUILLORY Procedure: US OB BPP w non-stress EXAMINATION: US OB BPP w non-stress HISTORY: THIRD TRIMESTER COMPARISON: Ultrasound biophysical 06/28/2023 TECHNIQUE: Ultrasound biophysical profile was performed in the radiology department. BREATHING MOVEMENTS: 2.0 GROSS BODY MOVEMENTS: 2.0 TONE: 2.0 QUALITATIVE AMNIOTIC FLUID VOLUME: 2.0 PRESENTATION: CEPHALIC HEART RATE: 158.8 bpm bpm. AMNIOTIC FLUID VOLUME: 15.0 cm GESTATIONAL AGE: 33 weeks 0 days CONCLUSION: Total biophysical profile score 8.0. Electronically authenticated by: RICH KNOTT Date: 07/04/2023 15:41
[2023-07-04 11:59] VITALS: BP 141/87; PULSE 108
[2023-07-04 12:17] VITALS: BP 142/84; PULSE 93
[2023-07-04 12:26] VITALS: BP 142/80
[2023-07-04 12:59] LABS: Hematocrit 34.5 % (36.0-48.0); Hemoglobin 11.6 g/dL (12.0-16.0); Mean Corpuscular HGB Conc 33.6 g/dL (29.9-35.2); Mean Corpuscular Hemoglobin 30.1 pg (26.7-34.0); Mean Corpuscular Volume 89.6 fL (81.0-99.0); Mean Platelet Volume 10.9 fL (9.5-13.5); Platelet Count 242 10^3/uL (150-450); Red Blood Count 3.85 10^6/uL (4.20-5.40); Red Cell Distribution Width 15.1 % (11.0-15.0); White Blood Count 14.8 10^3/uL (4.0-11.0)
[2023-07-04 13:07] LABS: Bilirubin Urine NEGATIVE (NEGATIVE); Blood Urine TRACE-I (NEGATIVE); Clarity Urine CLEAR (CLEAR); Color Urine LT. YELLOW (YELLOW); Glucose Urine UA NEGATIVE (NEGATIVE); Ketones Urine NEGATIVE (NEGATIVE); Leukocyte Esterase Urine NEGATIVE (NEGATIVE); Nitrite Urine NEGATIVE (NEGATIVE); Protein Urine NEGATIVE (NEG/TRACE); Urobilinogen Urine 0.2 EU/dL (0.2-1.0)
[2023-07-04 13:12] LABS: Alanine Aminotransferase 10 U/L (14-59); Aspartate Amino Transferase 10 U/L (15-37); Estimated GFR (African America >60 (>=60); Estimated GFR (Non-African Ame >60 (>=60); Uric Acid 4.1 mg/dL (2.6-6.0)
[2023-07-04 13:13] LABS: Partial Thromboplastin Time 27.7 sec (22.3-36.2); Prothrombin Time 9.8 sec (9.0-11.6)
[2023-07-04] MEDS: LABETALOL HCL 200 MG TABLET PO (13:21)
[2023-07-04 13:32] LABS: Eosinophils Absolute Manual 0.14 10^3/uL (0.00-0.70); Lymphocytes Absolute Manual 2.36 10^3/uL (1.20-3.80); Monocytes Absolute Manual 1.18 10^3/uL (0.30-0.80); Segmented Neut Absolute Manual 10.06 10^3/uL (1.4-6.5)
[2023-07-04 13:40] LABS: INR <0.93
--- NOTE | 2023-07-04 13:54 | PC.NURSE ---
1240Dr emely notified of bps and orders recieved, explained plan of care to pt and efm removed, lab up to draw blood and 24hour urine begun with UA
--- NOTE | 2023-07-04 13:58 | PC.NURSE ---
1215 Denies headache, blurry vision or epigastric pain
[2023-07-04 15:17] VITALS: BP 124/59; PULSE 90
--- NOTE | 2023-07-04 15:36 | PC.NURSE ---
Dr Finnegan notified of labs and blood pressure and orders received for recheck blood pressure tomorrow and 24 hour urine collection as well as recheck in office tomorrow
== END 2023-07-04 16:16 | disposition home or self-care (01) ==
LOC: FBC 11:38 → US 11:38
PROVIDERS: PCP Internal Medicine; Visit Provider Obstetrics & Gynecology
DX: Z34.93 Encounter for supervision of normal pregnancy, unspecified, third trimester (principal); Z3A.33 33 weeks gestation of pregnancy
CPT/HCPCS: 36415; 76818; 81003; 82565; 84450; 84460; 84520; 84550; 85027; 85384; 85610; 85730

== ENCOUNTER 2023-07-05 08:08 | Outpatient (OUT) | payer OTHER, SELFPAY ==
[2023-07-05 13:40] VITALS: BP 130/74; PULSE 104
[2023-07-05 14:04] LABS: Total Volume 24 Hour Urine 1175 mL/24hr
--- NOTE | 2023-07-05 14:05 | PC.NURSE ---
here for bp check after beginning labetalol yesterday, states has had headache since first dose of med, no other symtoms, bp 130/74, made appt with Dr han for next week, dropped off urine at lab prior to bp check
[2023-07-05 14:24] LABS: Total Protein 24 Hour Urine 408.9 mg/24hr (<=149.1); Total Protein Urine Random 34.8 mg/dL (<=11.9)
== END 2023-07-05 14:07 | disposition home or self-care (01) ==
LOC: FBCO 08:08 → FBC 13:39
PROVIDERS: PCP Internal Medicine; Visit Provider Obstetrics & Gynecology
DX: Z34.93 Encounter for supervision of normal pregnancy, unspecified, third trimester (principal)
CPT/HCPCS: 84156

== ENCOUNTER 2023-07-07 10:26 | Outpatient (OUT) | payer OTHER, SELFPAY ==
[2023-07-07 11:43] VITALS: TEMP 36.1
[2023-07-07 11:45] VITALS: BP 133/79; PULSE 109
== END 2023-07-07 12:20 | disposition home or self-care (01) ==
LOC: FBCO 10:27 → FBC 11:37
PROVIDERS: PCP Internal Medicine; Visit Provider Obstetrics & Gynecology
DX: Z34.93 Encounter for supervision of normal pregnancy, unspecified, third trimester (principal)
CPT/HCPCS: 59025

== ENCOUNTER 2023-07-11 07:16 | Outpatient (OUT) | payer OTHER, SELFPAY ==
--- NOTE | 2023-07-11 18:07 | US_ITS ---
[address] [address] Patient Name: ELIS GUTIÉRREZ MRN: [id number] date: 1985 Sex: F Assigned Patient Location: [facility] Current Patient Location: Accession/Order Number: [id number] Exam Date: 07/11/2023 18:10 Report Date: 07/12/2023 00:57 At the request of: ADENIKE GUILLORY Procedure: US OB BPP w non-stress EXAMINATION: US OB BPP w non-stress HISTORY: THIRD TRIMESTER Z34.92 COMPARISON: Ultrasound OB biophysical 07/04/2023 TECHNIQUE: Ultrasound biophysical profile was performed in the radiology department. BREATHING MOVEMENTS: 2.0 GROSS BODY MOVEMENTS: 2.0 TONE: 2.0 QUALITATIVE AMNIOTIC FLUID VOLUME: 2.0 PRESENTATION: CEPHALIC HEART RATE: 145.2 bpm bpm. AMNIOTIC FLUID VOLUME: 16.4 cm GESTATIONAL AGE: 34 weeks 0 days CONCLUSION: Total biophysical profile score 8.0. Electronically authenticated by: RICH KNOTT Date: 07/12/2023 00:57
[2023-07-11 18:32] VITALS: BP 124/74; PULSE 102
== END 2023-07-11 18:55 | disposition home or self-care (01) ==
LOC: US 07:16 → FBC 18:03
PROVIDERS: PCP Internal Medicine; Visit Provider Obstetrics & Gynecology
DX: Z34.93 Encounter for supervision of normal pregnancy, unspecified, third trimester (principal); Z3A.34 34 weeks gestation of pregnancy
CPT/HCPCS: 76818

== ENCOUNTER 2023-07-14 11:30 | Outpatient (OUT) | payer OTHER, SELFPAY ==
[2023-07-14 11:39] VITALS: BP 134/63; PULSE 112
== END 2023-07-14 12:10 | disposition home or self-care (01) ==
LOC: FBCO 11:34 → FBC 11:35
PROVIDERS: PCP Internal Medicine; Visit Provider Obstetrics & Gynecology
DX: Z34.93 Encounter for supervision of normal pregnancy, unspecified, third trimester (principal)
CPT/HCPCS: 59025

== ENCOUNTER 2023-07-18 07:05 | Outpatient (OUT) | payer OTHER, SELFPAY ==
--- NOTE | 2023-07-18 11:23 | US_ITS ---
[address] [address] Patient Name: ELIS GUTIÉRREZ MRN: [id number] date: 1985 Sex: F Assigned Patient Location: US Current Patient Location: Accession/Order Number: [id number] Exam Date: 07/18/2023 11:25 Report Date: 07/18/2023 15:43 At the request of: ADENIKE GUILLORY Procedure: US OB BPP w non-stress EXAMINATION: US OB BPP w non-stress HISTORY: Third trimester COMPARISON: Ultrasound OB biophysical 07/11/2023 TECHNIQUE: Ultrasound biophysical profile was performed in the radiology department. BREATHING MOVEMENTS: 2.0 GROSS BODY MOVEMENTS: 2.0 TONE: 2.0 QUALITATIVE AMNIOTIC FLUID VOLUME: 2.0 PRESENTATION: CEPHALIC HEART RATE: 141.4 bpm bpm. AMNIOTIC FLUID VOLUME: 16.3 cm GESTATIONAL AGE: 35 weeks 0 days CONCLUSION: Total biophysical profile score 8.0. Electronically authenticated by: RICH KNOTT Date: 07/18/2023 15:43
[2023-07-18 12:08] VITALS: BP 127/76; PULSE 105
--- OUTSIDE RECORDS SUMMARY | 2023-07-25 05:47 | XMS_ITS | CCD ---
Author Name Unknown Address [address] [place] [address] Organization [facility] Care Team Providers Care [employer]anger Aircraft Name Role Phone WEST, DR ANDRIY Polo Consulting Unavailable FAWWAD, KHAN Admitting Unavailable FAWWAD, KHAN Primary Care Unavailable FAWWAD, KHAN Attending Unavailable FAWWAD, KHAN Consulting Unavailable FAWWAD, KHAN Attending Unavailable FAWWAD, KHAN Admitting Unavailable FAWWAD, KHAN Primary Care Unavailable FAWWAD, KHAN Consulting Unavailable KARASIBerto, DR RIVERA Consulting Unavailable KARASIK, DR RIVERA Attending Unavailable KARASIK, DR RIVERA Admitting Unavailable Sivan, Adenike Attending Provider [phone] ANGELIC KAUR Attending Unavailable SIVAN, ADENIKE Attending [...] Fibrinogenon 07-04-2023 Fibrinogen 668 mg/dL High 200-393 [facility] Comment on above: Result Comment: A he matocrit value greater than 55% may lead to inaccurate results in coagulation testing. Patients having hematocrit values >55% require a special collection tube for coagulation studies. Please contact the laboratory at [phone] for redraw instructions. PERFORMED BY: [place] [address] PATHOLOGIST STEWARD/STEWARDESS CHIEF CARGO VESSEL LETHA DOMÍNGUEZ M.D. Performed By: #### F IB-C #### [address] Fibrinogen [Mass/volume] in Platelet poor plasma by Coagulation assayOrdered By: Adenike Finnegan on 07-04-2023 Fibrinogen Coag (PPP) [Mass/Vol] 668 mg/dL 200 -393 [facility] Comment on above: A hematocrit value g reater than 55% may lead to inaccurate results in coagulation testing. Patients having hematocrit values >55% require a special collection tube for coagulation studies. Please contact the laboratory at [phone] HEAD WO CONon [...] ANDRIY HIRSCH Date: 2021-03-18 17:02 Normal [facility] CBC AUTO DIFFon 01-27-2021 BASO # 0.1 103/ul Normal 0.0-0.1 [facility] Comment on above: Performed By: #### C BC #### [facility] [address] [id number] Jodi Taty Basophils/100 WBC (Bld) 1.1 % Normal 0.2-2.0 [facility] Comment on above: Performed By: #### C BC #### [facility] [address] [place] [address] Jodi Taty EO # 0.2 103/ul Normal 0.0-0.7 [facility] Comment on above: Performed By: #### C BC #### [facility] [address] [place], [place] [id number] Jodi Taty Eosinophils/100 WBC (Bld) 2.0 % Normal 0.9-7.0 [facility] Comment on above: Performed By: #### C BC #### [facility] [address] [place], [place] [id number] Jodi Taty Erythrocyte distribution wid th (RBC) [Ratio] 13.8 % Normal 11.0-15.0 [facility] Comment on above: Performed By: #### C BC #### [facility] [address] [place], [place] [id number] Jodi Taty Hematocrit (Bld) [Volume fraction] 47.4 % Normal 3 6.0-48.0 [facility] Comment on above: Performed By: #### C BC #### [facility] [address] [place], [place] [id number] Jodi Taty Hemoglobin (Bld) [Mass/Vol] 15.3 g/dL Normal 12.0-16. 0 [facility] Comment on above: Performed By: #### C BC #### [facility] [address] [id number] Jodi Taty IG # 0.26 10e3/ul Critically high 0.00-0.03 [facility] Comment on above: Performed By: #### C BC #### [facility] [address] [place], [place] [id number] Jodi Taty IG % 2.3 % Critically high 0.0-0.5 [facility] Comment on above: Performed By: #### C BC #### [facility] [address] [place], [place] [id number] Jodi Taty LYMPH # 2.4 103/ul Normal 1.2-3.8 [facility] Comment on above: Performed By: #### C BC #### [facility] [address] [place], [place] [id number] Jodi Taty Lymphocytes/100 WBC (Bld) 21.4 % Normal 20.5-60.0 [facility] Comment on above: Performed By: #### C BC #### [facility] [address] [place] [address] Jodi Taty MANUAL DIFF REQ NO Normal [facility] Comment on above: Performed By: #### C BC #### [facility] [address] [place], [place] [id number] Jodi Taty MCH (RBC) [Entitic mass] 29.5 pg Normal 26.7-34.0 [facility] Comment on above: Performed By: #### C BC #### [facility] [address] [place], [place] [id number] Jodi Taty MCHC (RBC) [Mass/Vol] 32.3 g/dL Normal 29.9-35.2 [facility] Comment on above: Performed By: #### C BC #### [facility] [address] [place], [place] [id number] Jodi Taty MCV (RBC) [Entitic vol] 91.5 fL Normal 81.0-99.0 [facility] Comment on above: Performed By: #### C BC #### [facility] [address] [place] [address] Jodi Taty MONO # 0.6 103/ul Normal 0.3-0.8 [facility] Comment on above: Performed By: #### C BC #### [facility] [address] [place], [place] [id number] Jodi Posey Monocytes/100 WBC (Bld) 5.3 % Normal 1.7-12.0 [facility] Comment on above: Performed By: #### C BC #### [facility] [address] [place], [place] [id number] Jodi Posey NEUT # 7.6 103/ul Critically high 1.4-6.5 [facility] Comment on above: Performed By: #### C BC #### [facility] [address] [place], [place] [id number] Jodi Posey Neutrophils/100 WBC (Bld) 67.9 % Normal 43.0-75.0 [facility] Comment on above: Performed By: #### C BC #### [facility] [address] [place], [place] [id number] Jodi Posey Platelet mean volume (Bld) [ Entitic vol] 11.2 fL Normal 9.5-13.5 [facility] Comment on above: Performed By: #### C BC #### [facility] [address] [place], [place] [id number] Jodi Posey PLT 277 103/ul Normal 150-450 [facility] Comment on above: Performed By: #### C BC #### [facility] [address] [place], [place] [id number] Jodi Posey RBC 5.18 106/ul Normal 4.20-5.40 [facility] Comment on above: Performed By: #### C BC #### [facility] [address] [place], [place] [id number] Jodi Taty WBC 11.3 103/ul Critically high 4.0-11.0 [facility] Comment on above: Performed By: #### C BC #### [facility] [address] [place], [place] [id number] Jodi Posey GLYCOHEMOGLOBIN A1Con 2020 ADA RECOMMENDATION ADA THERAPEUTIC TARG ET 6.0 - 7.0 ACTION SUGGESTED > 7.0 Normal [facility] Comment on above: Performed By: #### A 1C #### [facility] [address] [place], [place] [address] Jodi Taty Glucose [Mass/Vol] 123 mg/dL Normal [facility] Comment on above: Performed By: #### A 1C #### [facility] [address] [place], [place] [address] Jodi Taty HbA1c (Bld) [Mass fraction] 5.9 % Normal <=6.0 [facility] Comment on above: Performed By: #### A 1C #### [facility] [address] [place] [address] Jodi Taty LIPID PROFILEon 01-27-2021 CHOL-HDL RATIO NORM SEE BELOW Normal [facility] Comment on above: Result Comment: 3.3 - 4.4 LOW RISK 4.4 - 7.1 AVERAGE RISK 7.1 - 11.0 MODERATE RISK >11.0 HIGH RISK Performed By: #### C MP, LIPID, TSH #### [facility] [address] [place] [address] Jodi Taty Cholesterol [Mass/Vol] 185 mg/dL Normal <=200 [facility] Comment on above: Performed By: #### C MP, LIPID, TSH #### [facility] [address] [place] [address] Jodi Taty Cholesterol in HDL [Mass/Vol] 37 mg/dL Normal [facility] Comment on above: Performed By: #### C MP, LIPID, TSH #### [facility] [address] [place] [address] Jodi Taty Cholesterol in LDL [Mass/Vol] 112.4 mg/dL Normal [facility] Comment on above: Performed By: #### C MP, LIPID, TSH #### [facility] [address] [place] [address] Jodi Taty Cholesterol.total/Cholestero l in HDL [Mass ratio] 5.0 {ratio} Normal [facility] Comment on above: Performed By: #### C MP, LIPID, TSH #### [facility] [address] [id number] Jodi Taty HDL NORMAL > or = 60 mg/dl - LO W CARDIOVASCULAR RISK <40 mg/dl - HIGH CARDIOVASCULAR RISK Normal [facility] Comment on above: Performed By: #### C MP, LIPID, TSH #### [facility] [address] [id number] Jodi Taty LDL CALC NORMAL SEE BELOW Normal [facility] Comment on above: Result Comment: <100 mg/dl OPTIMAL 100 - 129 mg/dl NEAR OR ABOVE OPTIMAL 130 - 159 mg/dl BORDERLINE HIGH 160 - 189 mg/dl HIGH >190 mg/dl VERY HIGH Performed By: #### C MP, LIPID, TSH #### [facility] [address] [address] Jodi Taty Triglyceride [Mass/Vol] 178 mg/dL Critically high <=150 [facility] Comment on above: Performed By: #### C MP, LIPID, TSH #### [facility] [address] [address] Jodi Taty VLDL CALC 35.6 mg/dL Normal [facility] Comment on above: Performed By: #### C MP, LIPID, TSH #### [facility] [address] [id number] Jodi Taty PROF 14(COMP METB)on 021 Albumin [Mass/Vol] 3.8 g/dL Normal 3.5-5.0 [facility] Comment on above: Performed By: #### C MP, LIPID, TSH #### [facility] [address] [place], [place] [id number] Jodi Taty Albumin/Globulin [Mass ratio] 1.1 {ratio} Normal [facility] Comment on above: Performed By: #### C MP, LIPID, TSH #### [facility] [address] [id number] Jodi Taty ALP [Catalytic activity/Vol] 68 U/L Normal 38-126 [facility] Comment on above: Performed By: #### C MP, LIPID, TSH #### [facility] [address] [place], [place] [phone] Jodi Taty ALT [Catalytic activity/Vol] 30 U/L Normal 9-52 [facility] Comment on above: Performed By: #### C MP, LIPID, TSH #### [facility] [address] [address] Jodi Taty Anion gap [Moles/Vol] 12.8 mmol/L Normal Th [facility] Comment on above: Performed By: #### C MP, LIPID, TSH #### [facility] [address] [address] Jodi Taty AST [Catalytic activity/Vol] 19 U/L Normal 14-36 [facility] Comment on above: Performed By: #### C MP, LIPID, TSH #### [facility] [address] [address] Jodi Taty Bilirubin [Mass/Vol] 0.2 mg/dL Normal 0.2-1.3 [facility] Comment on above: Performed By: #### C MP, LIPID, TSH #### [facility] [address] [place] [address] Jodi Taty Calcium [Mass/Vol] 9.3 mg/dL Normal 8.4-10.2 [facility] Comment on above: Performed By: #### C MP, LIPID, TSH #### [facility] [address] [address] Jodi Taty Chloride [Moles/Vol] 104 mmol/L Normal 98-107 [facility] Comment on above: Performed By: #### C MP, LIPID, TSH #### [facility] [address] [address] Jodi Taty CO2 [Moles/Vol] 29.2 mmol/L Normal 22.0-30.0 [facility] Comment on above: Performed By: #### C MP, LIPID, TSH #### [facility] [address] [address] Jodi Taty Creatinine [Mass/Vol] 0.80 mg/dL Normal 0.52-1.04 [facility] Comment on above: Performed By: #### C MP, LIPID, TSH #### [facility] [address] [place], [place] [address] Jodi Taty EGFR-AF [place] ISLANDER >60 Normal >=60 [facility] Comment on above: Performed By: #### C MP, LIPID, TSH #### [facility] [address] [id number] Jodi Taty EGFR-NON AF [place]LANDER >60 Normal >=60 [facility] Comment on above: Performed By: #### C MP, LIPID, TSH #### [facility] [address] [id number] Jodi Taty Globulin (S) [Mass/Vol] 3.4 g/dL Normal T [facility] Comment on above: Performed By: #### C MP, LIPID, TSH #### [facility] [address] [address] Jodi Taty Glucose [Mass/Vol] 89 mg/dL Normal 74-106 [facility] Comment on above: Performed By: #### C MP, LIPID, TSH #### [facility] [address] [address] Jodi Taty Potassium [Moles/Vol] 4.0 mmol/L Normal 3.4-5.0 [facility] Comment on above: Performed By: #### C MP, LIPID, TSH #### [facility] [address] [id number] Jodi Taty Protein [Mass/Vol] 7.2 g/dL Normal 6.1-8.2 [facility] Comment on above: Performed By: #### C MP, LIPID, TSH #### [facility] [address] [place] [address] Jodi Taty Sodium [Moles/Vol] 142 mmol/L Normal 137-145 [facility] Comment on above: Performed By: #### C MP, LIPID, TSH #### [facility] [address] [id number] Jodi Taty Urea nitrogen [Mass/Vol] 11.0 mg/dL Normal 7.0-17.0 [facility] Comment on above: Performed By: #### C MP, LIPID, TSH #### [facility] [address] [place] [address] Jodi Posey Urea nitrogen/Creatinine [Mass ratio] 13.8 mg/mg Normal [facility] Comment on above: Performed By: #### C MP, LIPID, TSH #### [facility] [address] [place], [place] [id number] Jodi Posey TSHon 01-27-2021 TSH 3.187 uIU/mL Normal 0.470-4.680 [facility] Comment on above: Performed By: #### C MP, LIPID, TSH #### [facility] [address] [place] [address] Jodi Posey TSH RANGE SEE BELOW Normal [facility] Comment on above: Result Comment: <0.3 4 UIU/ml HYPERTHYROID 0.34-5.60 UIU/ml EUTHYROID >5.60 UIU/ml HYPOTHYROID Performed By: #### C MP, LIPID, TSH #### [facility] [address] [place] [address] Jodi Posey PAP ACOG PANEL 2: 30 to 65on 09-22-2020 . . Normal [facility] Comment on above: Result Comment: Perf ormed at: WB Performed By: #### [id number] #### [facility] [address] [place] [address] Jodi Posey Age Gdln ACOG Testing 30-65 Normal [facility] Comment on above: Performed By: #### [id number] #### [facility] [address] [place], [place] [id number] Jodi Posey DIAGNOSIS: Comment Normal [facility] Comment on above: Result Comment: NEGA TIVE FOR INTRAEPITHELIAL LESION OR MALIGNANCY. MICROORGANISMS MORPHOLOGICALLY CONSISTENT WITH ACTINOMYCES SPECIES ARE PRESENT. SHIFT IN DARI SUGGESTIVE OF BACTERIAL VAGINOSIS. Performed at: WB Performed By: #### [id number] #### [facility] [address] [place] [address] Jodi Posey HPV Aptima Negative Normal Negative [facility] Comment on above: Result Comment: This nucleic acid amplification test detects fourteen high-risk HPV types (16,18,31,33,35,39,45,51,52,56,58,59,66,68) without differentiation. Performed at: =G Performed By: #### [id number] #### [facility] [address] [place] [address] Jodi Posey Methodology: Comment Normal [facility] Comment on above: Result Comment: This liquid based ThinPrep(R) pap test was screened with the use of an image guided system. Performed at: WB Performed By: #### [id number] #### [facility] [address] [address] Jodi Posey Note: Comment Normal [facility] Comment on above: Result Comment: The Pap smear is a screening test designed to aid in the detection of premalignant and malignant conditions of the uterine cervix. It is not a diagnostic procedure and should not be used as the sole means of detecting cervical cancer. Both false-positive and false-negative reports do occur. . Performed at: WB Performed By: #### [id number] #### [facility] [address] [place] [address] Jodi Posey Performed by: Comment Normal [facility] Comment on above: Result Comment: Camila Navarro, Motion Picture Actor (ASCP) Performed at: WB Performed By: #### [id number] #### [facility] [address] [place] [address] Jodi Posey Specimen adequacy: Comment Normal [facility] Comment on above: Result Comment: Sati sfactory for evaluation. No endocervical component is identified. Performed at: WB Performed By: #### [id number] #### [facility] [address] [place], [place] [id number] Jodi Posey Encounters Encounter Date Encounter Type Care Provider Facility Start: 07-09-2023 End: 07-09-2023 ambulatory ADENIKE FINNEGAN Not Available Start: 07-04-2023 End: 07-04-2023 ambulatory Shaikh Thu Facility:[facility] Start: 07-04-2023 End: 07-04-2023 ambulatory Adenike Finnegan Work Phone: [facility] Work Phone: Start: 07-04-2023 End: 07-04-2023 Departed Referred Adenike Finnegan Work Phone: [facility] [place] Work Phone: Start: 07-03-2023 End: 07-03-2023 ambulatory ANGELIC KAUR Not Available Start: 06-19-2023 End: 06-19-2023 ambulatory ADENIKE FINNEGAN Not Available Start: 03-18-2021 End: 03-19-[address] ANDRIY HIRSCH Facility:[facility] Start: 02-01-2021 Encounter for genera l adult medical examination without abnormal findings [facility] Start: 01-27-2021 End: 01-28-2021 ambulatory SHAIKH THU Facility:[facility] Start: 01-27-2021 End: 01-28-2021 Encounter for general adult medical examination without abnormal findings [facility] Start: 09-17-2020 End: 09-17-[address] NICOLE RIDDLE Facility:[facility] Payers Date Payer Category Payer Self-pay 2023 Unknown [id number] 1985 Unknown [id number] 2.16.84 [id number] 1985 Unknown [id number] .16.84 [id number] 1985 Unknown [id number] .16.84 [id number] 1985 Unknown [id number] 1985 Unknown [id number] 1985 Unknown [id number] 1959 Unknown [id number] 1959 Unknown [id number] Unknown [id number] .16.8 [id number] Social History Date Type Detail Facility Tobacco smoking stat us NHIS Unknown if ever smoked [facility] Work Phone: Start: 1985 Sex Assigned At Female F [facility] Evaluation note Note Date & Type Note Facility Evaluation note No assessment information availa ble [facility] Work Phone: Summary Purpose Family History No Family History Records FoundNo Family History Records FoundNo Family History Records Found Advance Directives No Advanced Directives Records FoundNo Advanced Directives Records FoundNo Advanced Directives Records Found Additional Source Comments INFORMATION SOURCE (unrecogn ized section and content) DATE CREATED AUTHOR 04/02/2021 [facility] DATE CREATED AUTHOR AUTHOR'S ORGANIZ ATION 07/11/2023 [facility] EPIC DATE CREATED AUTHOR AUTHOR'S ORGANIZ ATION 07/13/2023 [facility] Care Teams (unrecognized sec tion and content) [...] BE BASED ON THE PRIMARY CLINICAL RECORDS. [facility]. provides no warranty or guarantee of the accuracy or completeness of information in this document.
== END 2023-07-18 12:45 | disposition home or self-care (01) ==
LOC: US 07:05 → FBC 11:27
PROVIDERS: PCP Internal Medicine; Visit Provider Obstetrics & Gynecology
DX: Z34.93 Encounter for supervision of normal pregnancy, unspecified, third trimester (principal); Z3A.35 35 weeks gestation of pregnancy
CPT/HCPCS: 76818

== ENCOUNTER 2023-07-25 07:09 | Outpatient (OUT) | payer OTHER, SELFPAY ==
--- NOTE | 2023-07-25 | US_ITS ---
[address] [address] Patient Name: ELIS GUTIÉRREZ MRN: [id number] date: 1985 Sex: F Assigned Patient Location: [facility] Current Patient Location: Accession/Order Number: [id number] Exam Date: 07/25/2023 11:25 Report Date: 07/25/2023 12:57 At the request of: ADENIKE GUILLORY Procedure: US OB BPP w non-stress EXAMINATION: US OB BPP w non-stress HISTORY: THIRD TRIMESTER Z34.93 COMPARISON: No relevant comparison available. TECHNIQUE: Ultrasound biophysical profile was performed in the radiology department. non-reactive stress testing was performed by nursing staff in the birthing center. FINDINGS: BREATHING MOVEMENTS: 2.0 GROSS BODY MOVEMENTS: 2.0 TONE: 2.0 QUALITATIVE AMNIOTIC FLUID VOLUME: 2.0 PRESENTATION: CEPHALIC HEART RATE: 145.9 bpm H.B./min AMNIOTIC FLUID VOLUME: 13.5 cm cm GESTATIONAL AGE: 36 weeks 0 days CONCLUSION: Total biophysical profile score: 8.0 Electronically authenticated by: ANDRIY HIRSCH Date: 07/25/2023 12:57
--- OUTSIDE RECORDS SUMMARY | 2023-07-25 07:17 | XMS_ITS | CCD ---
Author Name Unknown Address [address] [place] [address] Organization [facility] Care Team Providers Care Group Practice Pediatrician Name Role Phone WEST, DR ANDRIY Polo Consulting Unavailable FAWWAD, KHAN Admitting Unavailable FAWWAD, KHAN Primary Care Unavailable FAWWAD, KHAN Attending Unavailable FAWWAD, KHAN Consulting Unavailable FAWWAD, KHAN Attending Unavailable FAWWAD, KAHN Admitting Unavailable FAWWAD, KHAN Primary Care Unavailable FAWWAD, KHAN Consulting Unavailable KARASIBerto, DR RIVERA Consulting Unavailable KARASIK, DR RIVERA Attending Unavailable KARASIK, DR RIVERA Admitting Unavailable Sivan, Adenike Attending Provider [phone] ANGELIC KAUR Attending Unavailable SIVAN, ADENIKE [...] Fibrinogenon 07-04-2023 Fibrinogen 668 mg/dL High 200-393 [facility] Comment on above: Result Comment: A he matocrit value greater than 55% may lead to inaccurate results in coagulation testing. Patients having hematocrit values >55% require a special collection tube for coagulation studies. Please contact the laboratory at [phone] for redraw instructions. PERFORMED BY: [place] [address] PATHOLOGIST REED MAN LETHA DOMÍNGUEZ M.D. Performed By: #### F IB-C #### [address] Fibrinogen [Mass/volume] in Platelet poor plasma by Coagulation assayOrdered By: Adenike Finnegan on 07-04-2023 Fibrinogen Coag (PPP) [Mass/Vol] 668 mg/dL 200 -393 [facility] Comment on above: A hematocrit value g reater than 55% may lead to inaccurate results in coagulation testing. Patients having hematocrit values >55% require a special collection tube for coagulation studies. Please contact the laboratory at [phone] HEAD WO CONon [...] ANDRIY HIRSCH Date: 2021-03-18 17:02 Normal [facility] CBC AUTO DIFFon 01-27-2021 BASO # 0.1 103/ul Normal 0.0-0.1 [facility] Comment on above: Performed By: #### C BC #### [facility] [address] [id number] Jodi Taty Basophils/100 WBC (Bld) 1.1 % Normal 0.2-2.0 [facility] Comment on above: Performed By: #### C BC #### [facility] [address] [place] [address] Jodi Taty EO # 0.2 103/ul Normal 0.0-0.7 [facility] Comment on above: Performed By: #### C BC #### [facility] [address] [place], [place] [id number] Jodi Taty Eosinophils/100 WBC (Bld) 2.0 % Normal 0.9-7.0 [facility] Comment on above: Performed By: #### C BC #### [facility] [address] [place], [place] [id number] Jodi Taty Erythrocyte distribution wid th (RBC) [Ratio] 13.8 % Normal 11.0-15.0 [facility] Comment on above: Performed By: #### C BC #### [facility] [address] [place], [place] [id number] Jodi Taty Hematocrit (Bld) [Volume fraction] 47.4 % Normal 3 6.0-48.0 [facility] Comment on above: Performed By: #### C BC #### [facility] [address] [place], [place] [id number] Jodi Taty Hemoglobin (Bld) [Mass/Vol] 15.3 g/dL Normal 12.0-16. 0 [facility] Comment on above: Performed By: #### C BC #### [facility] [address] [id number] Jodi Taty IG # 0.26 10e3/ul Critically high 0.00-0.03 [facility] Comment on above: Performed By: #### C BC #### [facility] [address] [place], [place] [id number] Jodi Taty IG % 2.3 % Critically high 0.0-0.5 [facility] Comment on above: Performed By: #### C BC #### [facility] [address] [place], [place] [id number] Jodi Taty LYMPH # 2.4 103/ul Normal 1.2-3.8 [facility] Comment on above: Performed By: #### C BC #### [facility] [address] [place], [place] [id number] Jodi Taty Lymphocytes/100 WBC (Bld) 21.4 % Normal 20.5-60.0 [facility] Comment on above: Performed By: #### C BC #### [facility] [address] [place] [address] Jodi Taty MANUAL DIFF REQ NO Normal [facility] Comment on above: Performed By: #### C BC #### [facility] [address] [place], [place] [id number] Jodi Taty MCH (RBC) [Entitic mass] 29.5 pg Normal 26.7-34.0 [facility] Comment on above: Performed By: #### C BC #### [facility] [address] [place], [place] [id number] Jodi Taty MCHC (RBC) [Mass/Vol] 32.3 g/dL Normal 29.9-35.2 [facility] Comment on above: Performed By: #### C BC #### [facility] [address] [place], [place] [id number] Jodi Taty MCV (RBC) [Entitic vol] 91.5 fL Normal 81.0-99.0 [facility] Comment on above: Performed By: #### C BC #### [facility] [address] [place] [address] Jodi Taty MONO # 0.6 103/ul Normal 0.3-0.8 [facility] Comment on above: Performed By: #### C BC #### [facility] [address] [place], [place] [id number] Jodi Posey Monocytes/100 WBC (Bld) 5.3 % Normal 1.7-12.0 [facility] Comment on above: Performed By: #### C BC #### [facility] [address] [place], [place] [address] Jodi Posey NEUT # 7.6 103/ul Critically high 1.4-6.5 [facility] Comment on above: Performed By: #### C BC #### [facility] [address] [place], [place] [address] Jodi Posey Neutrophils/100 WBC (Bld) 67.9 % Normal 43.0-75.0 [facility] Comment on above: Performed By: #### C BC #### [facility] [address] [place], [place] [id number] Jodi Posey Platelet mean volume (Bld) [ Entitic vol] 11.2 fL Normal 9.5-13.5 [facility] Comment on above: Performed By: #### C BC #### [facility] [address] [place], [place] [address] Jodi Posey PLT 277 103/ul Normal 150-450 [facility] Comment on above: Performed By: #### C BC #### [facility] [address] [place], [place] [address] Jodi Posey RBC 5.18 106/ul Normal 4.20-5.40 [facility] Comment on above: Performed By: #### C BC #### [facility] [address] [place], [place] [address] Jodi Taty WBC 11.3 103/ul Critically high 4.0-11.0 [facility] Comment on above: Performed By: #### C BC #### [facility] [address] [place], [place] [address] Jodi Posey GLYCOHEMOGLOBIN A1Con 2020 ADA RECOMMENDATION ADA THERAPEUTIC TARG ET 6.0 - 7.0 ACTION SUGGESTED > 7.0 Normal The [facility] Comment on above: Performed By: #### A 1C #### [facility] [address] [place], [place] [address] Jodi Taty Glucose [Mass/Vol] 123 mg/dL Normal [facility] Comment on above: Performed By: #### A 1C #### [facility] [address] [place], [place] [address] Jodi Taty HbA1c (Bld) [Mass fraction] 5.9 % Normal <=6.0 [facility] Comment on above: Performed By: #### A 1C #### [facility] [address] [place] [address] Jodi Taty LIPID PROFILEon 01-27-2021 CHOL-HDL RATIO NORM SEE BELOW Normal [facility] Comment on above: Result Comment: 3.3 - 4.4 LOW RISK 4.4 - 7.1 AVERAGE RISK 7.1 - 11.0 MODERATE RISK >11.0 HIGH RISK Performed By: #### C MP, LIPID, TSH #### [facility] [address] [place] [address] Jodi Taty Cholesterol [Mass/Vol] 185 mg/dL Normal <=200 [facility] Comment on above: Performed By: #### C MP, LIPID, TSH #### [facility] [address] [place] [address] Jodi Taty Cholesterol in HDL [Mass/Vol] 37 mg/dL Normal [facility] Comment on above: Performed By: #### C MP, LIPID, TSH #### [facility] [address] [place] [address] Jodi Taty Cholesterol in LDL [Mass/Vol] 112.4 mg/dL Normal [facility] Comment on above: Performed By: #### C MP, LIPID, TSH #### [facility] [address] [place] [address] Jodi Taty Cholesterol.total/Cholestero l in HDL [Mass ratio] 5.0 {ratio} Normal [facility] [place] [facility] Comment on above: Performed By: #### C MP, LIPID, TSH #### [facility] [address] [phone] Jodi Taty HDL NORMAL > or = 60 mg/dl - LO W CARDIOVASCULAR RISK <40 mg/dl - HIGH CARDIOVASCULAR RISK Normal [facility] Comment on above: Performed By: #### C MP, LIPID, TSH #### [facility] [address] [phone] Jodi Taty LDL CALC NORMAL SEE BELOW Normal [facility] Comment on above: Result Comment: <100 mg/dl OPTIMAL 100 - 129 mg/dl NEAR OR ABOVE OPTIMAL 130 - 159 mg/dl BORDERLINE HIGH 160 - 189 mg/dl HIGH >190 mg/dl VERY HIGH Performed By: #### C MP, LIPID, TSH #### [facility] [address] [address] Jodi Taty Triglyceride [Mass/Vol] 178 mg/dL Critically high <=150 [facility] Comment on above: Performed By: #### C MP, LIPID, TSH #### [facility] [address] [address] Jodi Taty VLDL CALC 35.6 mg/dL Normal [facility] Comment on above: Performed By: #### C MP, LIPID, TSH #### [facility] [address] [phone] Jodi Taty PROF 14(COMP METB)on 021 Albumin [Mass/Vol] 3.8 g/dL Normal 3.5-5.0 [facility] Comment on above: Performed By: #### C MP, LIPID, TSH #### [facility] [address] [place], [place] [address] Jodi Taty Albumin/Globulin [Mass ratio] 1.1 {ratio} Normal [facility] Comment on above: Performed By: #### C MP, LIPID, TSH #### [facility] [address] [phone] Jodi Taty ALP [Catalytic activity/Vol] 68 U/L Normal 38-126 [facility] Comment on above: Performed By: #### C MP, LIPID, TSH #### [facility] [address] [place], [place] [address] Jodi Taty ALT [Catalytic activity/Vol] 30 U/L Normal 9-52 [facility] Comment on above: Performed By: #### C MP, LIPID, TSH #### [facility] [address] [address] Jodi Taty Anion gap [Moles/Vol] 12.8 mmol/L Normal Th [facility] Comment on above: Performed By: #### C MP, LIPID, TSH #### [facility] [address] [address] Jodi Taty AST [Catalytic activity/Vol] 19 U/L Normal 14-36 [facility] Comment on above: Performed By: #### C MP, LIPID, TSH #### [facility] [address] [address] Jodi Taty Bilirubin [Mass/Vol] 0.2 mg/dL Normal 0.2-1.3 [facility] Comment on above: Performed By: #### C MP, LIPID, TSH #### [facility] [address] [place] [address] Jodi Taty Calcium [Mass/Vol] 9.3 mg/dL Normal 8.4-10.2 [facility] Comment on above: Performed By: #### C MP, LIPID, TSH #### [facility] [address] [address] Jodi Taty Chloride [Moles/Vol] 104 mmol/L Normal 98-107 [facility] Comment on above: Performed By: #### C MP, LIPID, TSH #### [facility] [address] [address] Jodi Taty CO2 [Moles/Vol] 29.2 mmol/L Normal 22.0-30.0 [facility] Comment on above: Performed By: #### C MP, LIPID, TSH #### [facility] [address] [address] Jodi Taty Creatinine [Mass/Vol] 0.80 mg/dL Normal 0.52-1.04 [facility] Comment on above: Performed By: #### C MP, LIPID, TSH #### [facility] [address] [place], [place] [address] Jodi Taty EGFR-AF ISRAELI >60 Normal >=60 [facility] Comment on above: Performed By: #### C MP, LIPID, TSH #### [facility] [address] [phone] Jodi Taty EGFR-NON AF ISRAELI >60 Normal >=60 [facility] Comment on above: Performed By: #### C MP, LIPID, TSH #### [facility] [address] [phone] Jodi Taty Globulin (S) [Mass/Vol] 3.4 g/dL Normal [facility] Comment on above: Performed By: #### C MP, LIPID, TSH #### [facility] [address] [address] Jodi Taty Glucose [Mass/Vol] 89 mg/dL Normal 74-106 [facility] Comment on above: Performed By: #### C MP, LIPID, TSH #### [facility] [address] [address] Jodi Taty Potassium [Moles/Vol] 4.0 mmol/L Normal 3.4-5.0 [facility] Comment on above: Performed By: #### C MP, LIPID, TSH #### [facility] [address] [phone] Jodi Taty Protein [Mass/Vol] 7.2 g/dL Normal 6.1-8.2 [facility] Comment on above: Performed By: #### C MP, LIPID, TSH #### [facility] [address] [place] [address] Jodi Taty Sodium [Moles/Vol] 142 mmol/L Normal 137-145 [facility] Comment on above: Performed By: #### C MP, LIPID, TSH #### [facility] [address] [id number] Jodi Taty Urea nitrogen [Mass/Vol] 11.0 mg/dL Normal 7.0-17.0 [facility] Comment on above: Performed By: #### C MP, LIPID, TSH #### [facility] [address] [place] [address] Jodi Posey Urea nitrogen/Creatinine [Mass ratio] 13.8 mg/mg Normal [facility] Comment on above: Performed By: #### C MP, LIPID, TSH #### [facility] [address] [place], [place] [address] Jodi Posey TSHon 01-27-2021 TSH 3.187 uIU/mL Normal 0.470-4.680 [facility] Comment on above: Performed By: #### C MP, LIPID, TSH #### [facility] [address] [place] [address] Jodi Posey TSH RANGE SEE BELOW Normal [facility] Comment on above: Result Comment: <0.3 4 UIU/ml HYPERTHYROID 0.34-5.60 UIU/ml EUTHYROID >5.60 UIU/ml HYPOTHYROID Performed By: #### C MP, LIPID, TSH #### [facility] [address] [place] [address] Jodi Posey PAP ACOG PANEL 2: 30 to 65on 09-22-2020 . . Normal [facility] Comment on above: Result Comment: Perf ormed at: WB Performed By: #### [id number] #### [facility] [address] [place] [address] Jodi Posey Age Gdln ACOG Testing 30-65 Normal [facility] Comment on above: Performed By: #### [id number] #### [facility] [address] [place], [place] [address] Jodi Posey DIAGNOSIS: Comment Normal [facility] Comment on above: Result Comment: NEGA TIVE FOR INTRAEPITHELIAL LESION OR MALIGNANCY. MICROORGANISMS MORPHOLOGICALLY CONSISTENT WITH ACTINOMYCES SPECIES ARE PRESENT. SHIFT IN DARI SUGGESTIVE OF BACTERIAL VAGINOSIS. Performed at: WB Performed By: #### [id number] #### [facility] [address] [place] [address] Jodi Posey HPV Aptima Negative Normal Negative [facility] Comment on above: Result Comment: This nucleic acid amplification test detects fourteen high-risk HPV types (16,18,31,33,35,39,45,51,52,56,58,59,66,68) without differentiation. Performed at: =G Performed By: #### [id number] #### [facility] [address] [place] [address] Jodi Posey Methodology: Comment Normal [facility] Comment on above: Result Comment: This liquid based ThinPrep(R) pap test was screened with the use of an image guided system. Performed at: WB Performed By: #### [id number] #### [facility] [address] [address] Jodi Posey Note: Comment Normal [facility] Comment on above: Result Comment: The Pap smear is a screening test designed to aid in the detection of premalignant and malignant conditions of the uterine cervix. It is not a diagnostic procedure and should not be used as the sole means of detecting cervical cancer. Both false-positive and false-negative reports do occur. . Performed at: WB Performed By: #### [id number] #### [facility] [address] [place] [address] Jodi Posey Performed by: Comment Normal [facility] Comment on above: Result Comment: Camila Navarro, Curing Room Worker (ASCP) Performed at: WB Performed By: #### [id number] #### [facility] [address] [place] [address] Jodi Posey Specimen adequacy: Comment Normal [facility] Comment on above: Result Comment: Sati sfactory for evaluation. No endocervical component is identified. Performed at: WB Performed By: #### [id number] #### [facility] [address] [place], [place] [id number] Jodi Posey Encounters Encounter Date Encounter Type Care Provider Facility Start: 07-09-2023 End: 07-09-2023 ambulatory ADENIKE FINNEGAN Not Available Start: 07-04-2023 End: 07-04-2023 ambulatory Shaikh Thu Facility:[facility] Start: 07-04-2023 End: 07-04-2023 ambulatory Adenike Finnegan Work Phone: [facility] Work Phone: Start: 07-04-2023 End: 07-04-2023 Departed Referred Adenike Finnegan Work Phone: [facility] Work Phone: Start: 07-03-2023 End: 07-03-2023 ambulatory ANGELIC KAUR Not Available Start: 06-19-2023 End: 06-19-2023 ambulatory ADENIKE FINNEGAN Not Available Start: 03-18-2021 End: 03-19-[address] ANDRIY HIRSCH Facility:[facility] Start: 02-01-2021 Encounter for genera l adult medical examination without abnormal findings [facility] Start: 01-27-2021 End: 01-28-2021 ambulatory SHAIKH THU Facility:[facility] Start: 01-27-2021 End: 01-28-2021 Encounter for general adult medical examination without [facility] Start: 09-17-2020 End: 09-17-[address] NICOLE RIDDLE Facility:[facility] Payers Date Payer Category Payer Self-pay 2023 Unknown [id number] 1985 Unknown [id number] 2.16.84 [id number] 1985 Unknown [id number] [id number] 1985 Unknown [id number] .16.84 [id number] 1985 Unknown [id number] 1985 Unknown [id number] 1985 Unknown [id number]. [id number] 1959 Unknown [id number] 1959 Unknown [id number] Unknown [id number] .16.8 [id number] Social History Date Type Detail Facility Tobacco smoking stat us NHIS Unknown if ever smoked [facility] Work Phone: Start: 1985 Sex Assigned At Female F [facility] Evaluation note Note Date & Type Note Facility Evaluation note No assessment information availa ble [facility] Work Phone: Summary Purpose Family History No Family History Records FoundNo Family History Records FoundNo Family History Records Found Advance Directives No Advanced Directives Records FoundNo Advanced Directives Records FoundNo Advanced Directives Records Found Additional Source Comments INFORMATION SOURCE (unrecogn ized section and content) DATE CREATED AUTHOR 04/02/2021 [facility] DATE CREATED AUTHOR AUTHOR'S ORGANIZ ATION 07/11/2023 [facility] EPIC DATE CREATED AUTHOR AUTHOR'S ORGANIZ ATION 07/13/2023 [facility] Care Teams (unrecognized sec tion and content) [...] BE BASED ON THE PRIMARY CLINICAL RECORDS. Dr [facility] [employer]. provides no warranty or guarantee of the accuracy or completeness of information in this document.
[2023-07-25 11:51] VITALS: BP 132/70; PULSE 102
== END 2023-07-25 12:30 | disposition home or self-care (01) ==
LOC: US 07:09 → FBC 11:24
PROVIDERS: PCP Internal Medicine; Visit Provider Obstetrics & Gynecology
DX: Z34.93 Encounter for supervision of normal pregnancy, unspecified, third trimester (principal)
CPT/HCPCS: 76818; 87081

== ENCOUNTER 2023-07-25 21:45 | Outpatient (REF) | payer OTHER, SELFPAY ==
--- OUTSIDE RECORDS SUMMARY | 2023-07-26 10:16 | XMS_ITS | CCD ---
Author Name Unknown Address [address] [place] [address] Organization [facility] Care Team Providers Care Supervisor Rework Name Role Phone WEST, DR ANDRIY Polo Consulting Unavailable FAWWAD, KHAN Admitting Unavailable FAWWAD, KHAN Primary Care Unavailable FAWWAD, KHAN Attending Unavailable FAWWAD, KHAN Consulting Unavailable FAWWAD, KHAN Attending Unavailable FAWWAD, KHAN Admitting Unavailable FAWWAD, KHAN Primary Care Unavailable FAWWAD, KHAN Consulting Unavailable KARASIBerto, DR RIVERA Consulting Unavailable KARASIK, DR RIVERA Attending Unavailable KARASIK, DR RIVERA Admitting Unavailable Sivan, Adenike Attending Provider [phone] ANGELIC KAUR Attending Unavailable SIVAN, ADENIKE [...] Results Test Name Value Interpretation Reference Range Facility Fibrinogenon 07-04-2023 Fibrinogen 668 mg/dL High 200-393 [facility] Comment on above: Result Comment: A he matocrit value greater than 55% may lead to inaccurate results in coagulation testing. Patients having hematocrit values >55% require a special collection tube for coagulation studies. Please contact the laboratory at [phone] for redraw instructions. PERFORMED BY: [place] [address] PATHOLOGIST STAFF GENETIC COUNSELOR LETHA DOMÍNGUEZ M.D. Performed By: #### F IB-C #### [address] Fibrinogen [Mass/volume] in Platelet poor plasma by Coagulation assayOrdered By: Adenike Finnegan on 07-04-2023 Fibrinogen Coag (PPP) [Mass/Vol] 668 mg/dL 200-393 [facility] Comment on above: A hematocrit value g reater than 55% may lead to inaccurate results in coagulation testing. Patients having hematocrit values >55% require a special collection tube for coagulation studies. Please contact the laboratory at [phone] HEAD WO CONon [...] ANDRIY HIRSCH Date: 2021-03-18 17:02 Normal [facility] CBC AUTO DIFFon 01-27-2021 BASO # 0.1 103/ul Normal 0.0-0.1 [facility] Comment on above: Performed By: #### C BC #### [facility] [address] [place] [address] Jodi Taty Basophils/100 WBC (Bld) 1.1 % Normal 0.2-2.0 [facility] Comment on above: Performed By: #### C BC #### [facility] [address] [place] [address] Jodi Taty EO # 0.2 103/ul Normal 0.0-0.7 [facility] Comment on above: Performed By: #### C BC #### [facility] [address] [place] [address] Jodi Taty Eosinophils/100 WBC (Bld) 2.0 % Normal 0.9-7.0 [facility] Comment on above: Performed By: #### C BC #### [facility] [address] [place], [place] [id number] Jodi Taty Erythrocyte distribution width (RBC) [Ratio] 13.8 % Normal 11.0-15.0 [facility] Comment on above: Performed By: #### C BC #### [facility] [address] [place] [address] Jodi Taty Hematocrit (Bld) [Volume fraction] 47.4 % Normal 36.0-48.0 [facility] Comment on above: Performed By: #### C BC #### [facility] [address] [place], [place] [id number] Jodi Taty Hemoglobin (Bld) [Mass/Vol] 15.3 g/dL Normal 12.0-16.0 [facility] Comment on above: Performed By: #### C BC #### [facility] [address] [place] [address] Jodi Taty IG # 0.26 10e3/ul Critically high 0.00-0.03 [facility] Comment on above: Performed By: #### C BC #### [facility] [address] [place], [place] [address] Jodi Posey IG % 2.3 % Critically high 0.0-0.5 [facility] Comment on above: Performed By: #### C BC #### [facility] [address] [place], [place] [address] Jodi Posey LYMPH # 2.4 103/ul Normal 1.2-3.8 [facility] Comment on above: Performed By: #### C BC #### [facility] [address] [place], [place] [address] Jodi Posey Lymphocytes/100 WBC (Bld) 21.4 % Normal 20.5-60.0 [facility] Comment on above: Performed By: #### C BC #### [facility] [address] [place], [place] [address] Jodi Posey MANUAL DIFF REQ NO Normal [facility] Comment on above: Performed By: #### C BC #### [facility] [address] [place], [place] [address] Jodi Posey MCH (RBC) [Entitic mass] 29.5 pg Normal 26.7-34.0 [facility] Comment on above: Performed By: #### C BC #### [facility] [address] [place], [place] [address] Jodi Posey MCHC (RBC) [Mass/Vol] 32.3 g/dL Normal 29.9-35.2 [facility] Comment on above: Performed By: #### C BC #### [facility] [address] [place], [place] [address] Jodi Posey MCV (RBC) [Entitic vol] 91.5 fL Normal 81.0-99.0 [facility] Comment on above: Performed By: #### C BC #### [facility] [address] [place] [address] Jodi Posey MONO # 0.6 103/ul Normal 0.3-0.8 [facility] Comment on above: Performed By: #### C BC #### [facility] [address] [place], [place] [address] Jodi Taty Monocytes/100 WBC (Bld) 5.3 % Normal 1.7-12.0 [facility] Comment on above: Performed By: #### C BC #### [facility] [address] [place], [place] [address] Jodi Taty NEUT # 7.6 103/ul Critically high 1.4-6.5 [facility] [place] [facility] Comment on above: Performed By: #### C BC #### [facility] [address] [place], [place] [address] Jodi Taty Neutrophils/100 WBC (Bld) 67.9 % Normal 43.0-75.0 [facility] Comment on above: Performed By: #### C BC #### [facility] [address] [place] [id number] Jodi Posey Platelet mean volume (Bld) [Entitic vol] 11.2 fL Normal 9.5-13.5 [facility] Comment on above: Performed By: #### C BC #### [facility] [address] [place], [place] [address] Jodi Taty PLT 277 103/ul Normal 150-450 [facility] Comment on above: Performed By: #### C BC #### [facility] [address] [place] [address] Jodi Taty RBC 5.18 106/ul Normal 4.20-5.40 [facility] Comment on above: Performed By: #### C BC #### [facility] [address] [place], [place] [address] Jodi Taty WBC 11.3 103/ul Critically high 4.0-11.0 [facility] Comment on above: Performed By: #### C BC #### [facility] [address] [place] [address] Jodi Posey GLYCOHEMOGLOBIN A1Con 2020 ADA RECOMMENDATION ADA THERAPEUTIC TARGET 6.0 - 7.0 ACTION SUGGESTED > 7.0 Normal [facility] Comment on above: Performed By: #### A 1C #### [facility] [address] [place], [place] [address] Jodi Taty Glucose [Mass/Vol] 123 mg/dL Normal [facility] Comment on above: Performed By: #### A 1C #### [facility] [address] [place], [place] [address] Jodi Taty HbA1c (Bld) [Mass fraction] 5.9 % Normal <=6.0 [facility] Comment on above: Performed By: #### A 1C #### [facility] [address] [place] [id number] Jodi Taty LIPID PROFILEon 01-27-2021 CHOL-HDL RATIO NORM SEE BELOW Normal [facility] Comment on above: Result Comment: 3.3 - 4.4 LOW RISK 4.4 - 7.1 AVERAGE RISK 7.1 - 11.0 MODERATE RISK >11.0 HIGH RISK Performed By: #### C MP, LIPID, TSH #### [facility] [address] [place] [id number] Jodi Taty Cholesterol [Mass/Vol] 185 mg/dL Normal <=200 [facility] Comment on above: Performed By: #### C MP, LIPID, TSH #### [facility] [address] [place] [id number] Jodi Taty Cholesterol in HDL [Mass/Vol] 37 mg/dL Normal [facility] Comment on above: Performed By: #### C MP, LIPID, TSH #### [facility] [address] [place] [id number] Jodi Taty Cholesterol in LDL [Mass/Vol] 112.4 mg/dL Normal [facility] Comment on above: Performed By: #### C MP, LIPID, TSH #### [facility] [address] [place], [place] [address] Jodi Taty Cholesterol.total/Ch olesterol in HDL [Mass ratio] 5.0 {ratio} Normal [facility] Comment on above: Performed By: #### C MP, LIPID, TSH #### [facility] [address] [place], [place] [address] Jodi Taty HDL NORMAL > or = 60 mg/dl - LO W CARDIOVASCULAR RISK <40 mg/dl - HIGH CARDIOVASCULAR RISK Normal [facility] Comment on above: Performed By: #### C MP, LIPID, TSH #### [facility] [address] [place], [place] [address] Jodi Taty LDL CALC NORMAL SEE BELOW Normal [facility] Comment on above: Result Comment: <100 mg/dl OPTIMAL 100 - 129 mg/dl NEAR OR ABOVE OPTIMAL 130 - 159 mg/dl BORDERLINE HIGH 160 - 189 mg/dl HIGH >190 mg/dl VERY HIGH Performed By: #### C MP, LIPID, TSH #### [facility] [address] [place], [place] [address] Jodi Taty Triglyceride [Mass/Vol] 178 mg/dL Critically high <=150 [facility] Comment on above: Performed By: #### C MP, LIPID, TSH #### [facility] [address] [place] [id number] Jodi Taty VLDL CALC 35.6 mg/dL Normal [facility] Comment on above: Performed By: #### C MP, LIPID, TSH #### [facility] [address] [place], [place] [address] Jodi Taty PROF 14(COMP METB)on 021 Albumin [Mass/Vol] 3.8 g/dL Normal 3.5-5.0 [facility] Comment on above: Performed By: #### C MP, LIPID, TSH #### [facility] [address] [place] [id number] Jodi Taty Albumin/Globulin [Mass ratio] 1.1 {ratio} Normal [facility] Comment on above: Performed By: #### C MP, LIPID, TSH #### [facility] [address] [place], [place] [address] Jodi Taty ALP [Catalytic activity/Vol] 68 U/L Normal 38-126 [facility] Comment on above: Performed By: #### C MP, LIPID, TSH #### [facility] [address] [place], [place] [address] Jodi Taty ALT [Catalytic activity/Vol] 30 U/L Normal 9-52 [facility] Comment on above: Performed By: #### C MP, LIPID, TSH #### [facility] [address] [place] [id number] Jodi Taty Anion gap [Moles/Vol] 12.8 mmol/L Normal [facility] Comment on above: Performed By: #### C MP, LIPID, TSH #### [facility] [address] [place] [address] Jodi Taty AST [Catalytic activity/Vol] 19 U/L Normal 14-36 [facility] Comment on above: Performed By: #### C MP, LIPID, TSH #### [facility] [address] [place] [address] Jodi Taty Bilirubin [Mass/Vol] 0.2 mg/dL Normal 0.2-1.3 [facility] Comment on above: Performed By: #### C MP, LIPID, TSH #### [facility] [address] [place] [address] Jodi Taty Calcium [Mass/Vol] 9.3 mg/dL Normal 8.4-10.2 [facility] Comment on above: Performed By: #### C MP, LIPID, TSH #### [facility] [address] [place] [address] Jodi Taty Chloride [Moles/Vol] 104 mmol/L Normal 98-107 [facility] Comment on above: Performed By: #### C MP, LIPID, TSH #### [facility] [address] [place] [id number] Jodi Taty CO2 [Moles/Vol] 29.2 mmol/L Normal 22.0-30.0 [facility] Comment on above: Performed By: #### C MP, LIPID, TSH #### [facility] [address] [place] [id number] Jodi Taty Creatinine [Mass/Vol] 0.80 mg/dL Normal 0.52-1.04 [facility] Comment on above: Performed By: #### C MP, LIPID, TSH #### [facility] [address] [place] [id number] Jodi Taty EGFR-AF PAKISTANI >60 Normal >=60 [facility] Comment on above: Performed By: #### C MP, LIPID, TSH #### [facility] [address] [place], [place] [address] Jodi Taty EGFR-NON AF PAKISTANI >60 Normal >=60 [facility] Comment on above: Performed By: #### C MP, LIPID, TSH #### [facility] [address] [place], [place] [address] Jodi Taty Globulin (S) [Mass/Vol] 3.4 g/dL Normal [facility] Comment on above: Performed By: #### C MP, LIPID, TSH #### [facility] [address] [place] [id number] Jodi Taty Glucose [Mass/Vol] 89 mg/dL Normal 74-106 [facility] Comment on above: Performed By: #### C MP, LIPID, TSH #### [facility] [address] [place] [address] Jodi Taty Potassium [Moles/Vol] 4.0 mmol/L Normal 3.4-5.0 [facility] Comment on above: Performed By: #### C MP, LIPID, TSH #### [facility] [address] [place] [id number] Jodi Taty Protein [Mass/Vol] 7.2 g/dL Normal 6.1-8.2 [facility] Comment on above: Performed By: #### C MP, LIPID, TSH #### [facility] [address] [place] [id number] Jodi Taty Sodium [Moles/Vol] 142 mmol/L Normal 137-145 [facility] Comment on above: Performed By: #### C MP, LIPID, TSH #### [facility] [address] [place] [id number] Jodi Taty Urea nitrogen [Mass/Vol] 11.0 mg/dL Normal 7.0-17.0 [facility] Comment on above: Performed By: #### C MP, LIPID, TSH #### [facility] [address] [place] [id number] Jodi Taty Urea nitrogen/Creatinine [Mass ratio] 13.8 mg/mg Normal [facility] Comment on above: Performed By: #### C MP, LIPID, TSH #### [facility] [address] [place] [id number] Jodi Posey TSHon 01-27-2021 TSH 3.187 uIU/mL Normal 0.470-4.680 [facility] Comment on above: Performed By: #### C MP, LIPID, TSH #### [facility] [address] [place] [address] Jodi Posey TSH RANGE SEE BELOW Normal [facility] Comment on above: Result Comment: <0.3 4 UIU/ml HYPERTHYROID 0.34-5.60 UIU/ml EUTHYROID >5.60 UIU/ml HYPOTHYROID Performed By: #### C MP, LIPID, TSH #### [facility] [address] [place] [address] Jodi Posey PAP ACOG PANEL 2: 30 to 65on 09-22-2020 . . Normal [facility] Comment on above: Result Comment: Perf ormed at: WB Performed By: #### [id number] #### [facility] [address] [place] [address] Jodi Posey Age Gdln ACOG Testing 30-65 Normal [facility] Comment on above: Performed By: #### [id number] #### [facility] [address] [place] [address] Jodi Posey DIAGNOSIS: Comment Normal [facility] Comment on above: Result Comment: NEGA TIVE FOR INTRAEPITHELIAL LESION OR MALIGNANCY. MICROORGANISMS MORPHOLOGICALLY CONSISTENT WITH ACTINOMYCES SPECIES ARE PRESENT. SHIFT IN DARI SUGGESTIVE OF BACTERIAL VAGINOSIS. Performed at: WB Performed By: #### [id number] #### [facility] [address] [place] [address] Jodi Posey HPV Aptima Negative Normal Negative [facility] Comment on above: Result Comment: This nucleic acid amplification test detects fourteen high-risk HPV types (16,18,31,33,35,39,45,51,52,56,58,59,66,68) without differentiation. Performed at: =G Performed By: #### [id number] #### [facility] [address] [place] [id number] Jodi Posey Methodology: Comment Normal [facility] Comment on above: Result Comment: This liquid based ThinPrep(R) pap test was screened with the use of an image guided system. Performed at: WB Performed By: #### [id number] #### [facility] [address] [place] [address] Jodi Posey Note: Comment Normal [facility] Comment on above: Result Comment: The Pap smear is a screening test designed to aid in the detection of premalignant and malignant conditions of the uterine cervix. It is not a diagnostic procedure and should not be used as the sole means of detecting cervical cancer. Both false-positive and false-negative reports do occur. . Performed at: WB Performed By: #### [id number] #### [facility] [address] [place], [place] [address] Jodi Posey Performed by: Comment Normal [facility] Comment on above: Result Comment: Camila Navarro, Wig Stylist (ASCP) Performed at: WB Performed By: #### [id number] #### [facility] [address] [place], [place] [address] Jodi Posey Specimen adequacy: Comment Normal [facility] Comment on above: Result Comment: Sati sfactory for evaluation. No endocervical component is identified. Performed at: WB Performed By: #### [id number] #### [facility] [address] [place], [place] [address] Jodi Posey Encounters Encounter Date Encounter Type Care Provider Facility Start: 07-09-2023 End: 07-09-2023 ambulatory ADENIKE SIVAN Not Available Start: 07-04-2023 End: 07-04-2023 ambulatory Shaikh Thu Facility:[facility] Start: 07-04-2023 End: 07-04-2023 ambulatory Adenike Sivan Work Phone: [facility] Work Phone: Start: 07-04-2023 End: 07-04-2023 Departed Referred Adenike Sivan Work Phone: [facility] [place] Work Phone: Start: 07-03-2023 End: 07-03-2023 ambulatory ANGELIC KAUR Not Available Start: 06-19-2023 End: 06-19-2023 ambulatory ADENIKE FINNEGAN Not Available Start: 03-18-2021 End: 03-19-[address] ANDRIY HIRSCH Facility:[facility] Start: 02-01-2021 Encounter for genera l adult medical examination without abnormal findings KHAN FASHIV [facility] Start: 01-27-2021 End: 01-28-2021 ambulatory KHAN FASHIV Facility:[facility] Start: 01-27-2021 End: 01-28-2021 Encounter for general adult medical examination without abnormal findings KHAN FASaskiaFLSalma Facility:[facility] Start: 09-17-2020 End: 09-17-[address] NICOLE RIDDLE Facility:[facility] Payers Date Payer Category Payer Self-pay 2023 Unknown [id number] 1985 Unknown [id number] 2.16.84 [id number] 1985 Unknown [id number] 2.16.84 [id number] 1985 Unknown [id number] 2.16.84 [id number] 1985 Unknown [id number] 1985 Unknown [id number] 1985 Unknown [id number] 1959 Unknown [id number] 1959 Unknown [id number] Unknown [id number] 2.16.8 [id number] Social History Date Type Detail [facility] Work Phone: Start: 1985 Sex Assigned At Female F [facility] Evaluation note Note Date & Type Note Facility Evaluation note No assessment information availa darrick [facility] Work Phone: Summary Purpose Family History No Family History Records FoundNo Family History Records FoundNo Family History Records Found Advance Directives No Advanced Directives Records FoundNo Advanced Directives Records FoundNo Advanced Directives Records Found Additional Source Comments INFORMATION SOURCE (unrecogn ized section and content) DATE CREATED AUTHOR 04/02/2021 [facility] DATE CREATED AUTHOR AUTHOR'S ORGANIZ ATION 07/11/2023 [facility] EPIC DATE CREATED AUTHOR AUTHOR'S ORGANIZ ATION 07/13/2023 [facility] Care Teams (unrecognized sec tion [...] BE BASED ON THE PRIMARY CLINICAL RECORDS. [facility]. provides no warranty or guarantee of the accuracy or completeness of information in this document.
== END 2023-07-25 21:46 | disposition home or self-care (01) ==
LOC: LAB 21:45
PROVIDERS: PCP Internal Medicine; Visit Provider Physician Assistant
DX: Z34.93 Encounter for supervision of normal pregnancy, unspecified, third trimester (principal)
CPT/HCPCS: 87081

== ENCOUNTER 2023-07-27 10:54 | Outpatient (OUT) | payer OTHER, SELFPAY ==
--- OUTSIDE RECORDS SUMMARY | 2023-07-27 11:17 | XMS_ITS | CCD ---
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 Name Role Phone WEST, DR ANDRIY Polo Consulting Unavailable FAWWAD, KHAN Admitting Unavailable FAWWAD, KHAN Primary Care Unavailable FAWWAD, KHAN Attending Unavailable FAWWAD, KHAN Consulting Unavailable FAWWAD, KHAN Attending Unavailable FAWWAD, KHAN Admitting Unavailable FAWWAD, KHAN Primary Care Unavailable FAWWAD, KHAN Consulting Unavailable KARASIBerto, DR RIVERA Consulting Unavailable KARASIK, DR RIVERA Attending Unavailable KARASIK, DR RIVERA Admitting Unavailable Sivan, Adenike Attending Provider Fawwad, Khan Primary Care Unavailable Sivan, Adenike Attending Unavailable Sivan, Adenike Admitting Unavailable NATASHA, ANGELIC Attending Unavailable SIVAN, ADENIKE Attending Unavailable NATASHA ANGELIC Attending Unavailable SIVAN, ADENIKE Attending Unavailable Problems Active Problems Problem Classification Problem [...] Fibrinogenon 07-04-2023 Fibrinogen 668 mg/dL High 200-393 [facility] Comment on above: Result Comment: A he matocrit value greater than 55% may lead to inaccurate results in coagulation testing. Patients having hematocrit values >55% require a special collection tube for coagulation studies. Please contact the laboratory at [phone] for redraw instructions. PERFORMED BY: [place] [address] PATHOLOGIST GANG MINER LETHA DOMÍNGUEZ M.D. Performed By: #### F IB-C #### [address] Fibrinogen [Mass/volume] in Platelet poor plasma by Coagulation assayOrdered By: Adenike Finnegan on 07-04-2023 Fibrinogen Coag (PPP) [Mass/Vol] 668 mg/dL 200-393 [facility] Comment on above: A hematocrit value g reater than 55% may lead to inaccurate results in coagulation testing. Patients having hematocrit values >55% require a special collection tube for coagulation studies. Please contact the laboratory at [phone] HEAD WO CONon [...] ANDRIY HIRSCH Date: 2021-03-18 17:02 Normal [facility] CBC AUTO DIFFon 01-27-2021 BASO # 0.1 103/ul Normal 0.0-0.1 [facility] Comment on above: Performed By: #### C BC #### [facility] [address] [place] [address] Jodi Taty Basophils/100 WBC (Bld) 1.1 % Normal 0.2-2.0 [facility] Comment on above: Performed By: #### C BC #### [facility] [address] [place] [address] Jodi Taty EO # 0.2 103/ul Normal 0.0-0.7 [facility] Comment on above: Performed By: #### C BC #### [facility] [address] [place] [address] Jodi Taty Eosinophils/100 WBC (Bld) 2.0 % Normal 0.9-7.0 [facility] Comment on above: Performed By: #### C BC #### [facility] [address] [place] [address] Jodi Taty Erythrocyte distribution width (RBC) [Ratio] 13.8 % Normal 11.0-15.0 [facility] Comment on above: Performed By: #### C BC #### [facility] [address] [place] [address] Jodi Taty Hematocrit (Bld) [Volume fraction] 47.4 % Normal 36.0-48.0 [facility] Comment on above: Performed By: #### C BC #### [facility] [address] [place], [place] [id number] Jodi Taty Hemoglobin (Bld) [Mass/Vol] 15.3 g/dL Normal 12.0-16.0 [facility] Comment on above: Performed By: #### C BC #### [facility] [address] [place] [address] Jodidoc Posey IG # 0.26 10e3/ul Critically high 0.00-0.03 [facility] Comment on above: Performed By: #### C BC #### [facility] [address] [address] Jodi Posey IG % 2.3 % Critically high 0.0-0.5 [facility] Comment on above: Performed By: #### C BC #### [facility] [address] [place] [address] Jodi Posey LYMPH # 2.4 103/ul Normal 1.2-3.8 [facility] Comment on above: Performed By: #### C BC #### [facility] [address] [place] [address] Jodi Posey Lymphocytes/100 WBC (Bld) 21.4 % Normal 20.5-60.0 [facility] Comment on above: Performed By: #### C BC #### [facility] [address] [place] [address] Jodi Posey MANUAL DIFF REQ NO Normal [facility] Comment on above: Performed By: #### C BC #### [facility] [address] [place] [address] Jodi Posey MCH (RBC) [Entitic mass] 29.5 pg Normal 26.7-34.0 [facility] Comment on above: Performed By: #### C BC #### [facility] [address] [place] [address] Jodi Posey MCHC (RBC) [Mass/Vol] 32.3 g/dL Normal 29.9-35.2 [facility] Comment on above: Performed By: #### C BC #### [facility] [address] [place] [address] Jodidoc Posey MCV (RBC) [Entitic vol] 91.5 fL Normal 81.0-99.0 [facility] Comment on above: Performed By: #### C BC #### [facility] [address] [place] [address] Jodidoc Vázquezen MONO # 0.6 103/ul Normal 0.3-0.8 [facility] Comment on above: Performed By: #### C BC #### [facility] [address], [place] [address] Jodi Vázquezen Monocytes/100 WBC (Bld) 5.3 % Normal 1.7-12.0 [facility] Comment on above: Performed By: #### C BC #### [facility] [address] [id number] Jodi Posey NEUT # 7.6 103/ul Critically high 1.4-6.5 [facility] Comment on above: Performed By: #### C BC #### [facility] [address] [id number] Jodi Posey Neutrophils/100 WBC (Bld) 67.9 % Normal 43.0-75.0 [facility] Comment on above: Performed By: #### C BC #### [facility] [address] [place], [place] [id number] Jodi Posey Platelet mean volume (Bld) [Entitic vol] 11.2 fL Normal 9.5-13.5 [facility] Comment on above: Performed By: #### C BC #### [facility] [address] [place], [place] [address] Jodi Taty PLT 277 103/ul Normal 150-450 [facility] Comment on above: Performed By: #### C BC #### [facility] [address] [place], [place] [address] Jodi Taty RBC 5.18 106/ul Normal 4.20-5.40 [facility] Comment on above: Performed By: #### C BC #### [facility] [address] [place] [address] Jodi Taty WBC 11.3 103/ul Critically high 4.0-11.0 [facility] Comment on above: Performed By: #### C BC #### [facility] [address] [place], [place] [address] Jodi Posey GLYCOHEMOGLOBIN A1Con 2020 ADA RECOMMENDATION ADA THERAPEUTIC TARGET 6.0 - 7.0 ACTION SUGGESTED > 7.0 Normal [facility] Comment on above: Performed By: #### A 1C #### [facility] [address], [place] [address] Jodi Taty Glucose [Mass/Vol] 123 mg/dL Normal [facility] Comment on above: Performed By: #### A 1C #### [facility] [address], [place] [address] Jodi Taty HbA1c (Bld) [Mass fraction] 5.9 % Normal <=6.0 [facility] Comment on above: Performed By: #### A 1C #### [facility] [address], [place] [address] Jodi Taty LIPID PROFILEon 01-27-2021 CHOL-HDL RATIO NORM SEE BELOW Normal [facility] Comment on above: Result Comment: 3.3 - 4.4 LOW RISK 4.4 - 7.1 AVERAGE RISK 7.1 - 11.0 MODERATE RISK >11.0 HIGH RISK Performed By: #### C MP, LIPID, TSH #### [facility] [address] [id number] Jodi Taty Cholesterol [Mass/Vol] 185 mg/dL Normal <=200 [facility] Comment on above: Performed By: #### C MP, LIPID, TSH #### [facility] [address] [id number] Jdoi Taty Cholesterol in HDL [Mass/Vol] 37 mg/dL Normal [facility] Comment on above: Performed By: #### C MP, LIPID, TSH #### [facility] [address] [id number] Jodi Taty Cholesterol in LDL [Mass/Vol] 112.4 mg/dL Normal [facility] Comment on above: Performed By: #### C MP, LIPID, TSH #### [facility] [address], [place] [address] Jodi Taty Cholesterol.total/Ch olesterol in HDL [Mass ratio] 5.0 {ratio} Normal [facility] Comment on above: Performed By: #### C MP, LIPID, TSH #### [facility] [address], [place] [address] Jodi Taty HDL NORMAL > or = 60 mg/dl - LO W CARDIOVASCULAR RISK <40 mg/dl - HIGH CARDIOVASCULAR RISK Normal [facility] Comment on above: Performed By: #### C MP, LIPID, TSH #### [facility] [address] [place], [place] [address] Jodi Taty LDL CALC NORMAL SEE BELOW Normal [facility] Comment on above: Result Comment: <100 mg/dl OPTIMAL 100 - 129 mg/dl NEAR OR ABOVE OPTIMAL 130 - 159 mg/dl BORDERLINE HIGH 160 - 189 mg/dl HIGH >190 mg/dl VERY HIGH Performed By: #### C MP, LIPID, TSH #### [facility] [address], [place] [address] Jodi Taty Triglyceride [Mass/Vol] 178 mg/dL Critically high <=150 [facility] Comment on above: Performed By: #### C MP, LIPID, TSH #### [facility] [address], [place] [address] Jodi Taty VLDL CALC 35.6 mg/dL Normal [facility] Comment on above: Performed By: #### C MP, LIPID, TSH #### [facility] [address], [place] [address] Jodi Taty PROF 14(COMP METB)on 021 Albumin [Mass/Vol] 3.8 g/dL Normal 3.5-5.0 [facility] Comment on above: Performed By: #### C MP, LIPID, TSH #### [facility] [address], [place] [address] Jodi Taty Albumin/Globulin [Mass ratio] 1.1 {ratio} Normal [facility] Comment on above: Performed By: #### C MP, LIPID, TSH #### [facility] [address], [place] [address] Jodi Taty ALP [Catalytic activity/Vol] 68 U/L Normal 38-126 [facility] Comment on above: Performed By: #### C MP, LIPID, TSH #### [facility] [address], [place] [address] Jodi Taty ALT [Catalytic activity/Vol] 30 U/L Normal 9-52 [facility] Comment on above: Performed By: #### C MP, LIPID, TSH #### [facility] [address] [id number] Jodi Taty Anion gap [Moles/Vol] 12.8 mmol/L Normal [facility] Comment on above: Performed By: #### C MP, LIPID, TSH #### [facility] [address] [address] Jodi Taty AST [Catalytic activity/Vol] 19 U/L Normal 14-36 [facility] Comment on above: Performed By: #### C MP, LIPID, TSH #### [facility] [address] [id number] Jodi Taty Bilirubin [Mass/Vol] 0.2 mg/dL Normal 0.2-1.3 [facility] Comment on above: Performed By: #### C MP, LIPID, TSH #### [facility] [address] [address] Jodi Taty Calcium [Mass/Vol] 9.3 mg/dL Normal 8.4-10.2 [facility] Comment on above: Performed By: #### C MP, LIPID, TSH #### [facility] [address] [address] Jodi Taty Chloride [Moles/Vol] 104 mmol/L Normal 98-107 [facility] Comment on above: Performed By: #### C MP, LIPID, TSH #### [facility] [address] [address] Jodi Taty CO2 [Moles/Vol] 29.2 mmol/L Normal 22.0-30.0 [facility] Comment on above: Performed By: #### C MP, LIPID, TSH #### [facility] [address] [address] Jodi Taty Creatinine [Mass/Vol] 0.80 mg/dL Normal 0.52-1.04 [facility] Comment on above: Performed By: #### C MP, LIPID, TSH #### [facility] [address] [address] Jodi Taty EGFR-AF CUBAN >60 Normal >=60 [facility] Comment on above: Performed By: #### C MP, LIPID, TSH #### [facility] [address], [place] [address] Jodi Taty EGFR-NON AF CUBAN >60 Normal >=60 [facility] Comment on above: Performed By: #### C MP, LIPID, TSH #### [facility] [address], [place] [address] Jodi Taty Globulin (S) [Mass/Vol] 3.4 g/dL Normal [facility] Comment on above: Performed By: #### C MP, LIPID, TSH #### [facility] [address] [address] Jodi Taty Glucose [Mass/Vol] 89 mg/dL Normal 74-106 [facility] Comment on above: Performed By: #### C MP, LIPID, TSH #### [facility] [address] [address] Jodi Taty Potassium [Moles/Vol] 4.0 mmol/L Normal 3.4-5.0 [facility] Comment on above: Performed By: #### C MP, LIPID, TSH #### [facility] [address] [address] Jodi Taty Protein [Mass/Vol] 7.2 g/dL Normal 6.1-8.2 [facility] Comment on above: Performed By: #### C MP, LIPID, TSH #### [facility] [address] [address] Jodi Taty Sodium [Moles/Vol] 142 mmol/L Normal 137-145 [facility] Comment on above: Performed By: #### C MP, LIPID, TSH #### [facility] [address] [address] Jodi Taty Urea nitrogen [Mass/Vol] 11.0 mg/dL Normal 7.0-17.0 [facility] Comment on above: Performed By: #### C MP, LIPID, TSH #### [facility] [address] [address] Jodi Taty Urea nitrogen/Creatinine [Mass ratio] 13.8 mg/mg Normal [facility] Comment on above: Performed By: #### C MP, LIPID, TSH #### [facility] [address] [place] [address] Jodi Posey TSHon 01-27-2021 TSH 3.187 uIU/mL Normal 0.470-4.680 [facility] Comment on above: Performed By: #### C MP, LIPID, TSH #### [facility] [address] [place] [address] Jodi Posey TSH RANGE SEE BELOW Normal [facility] Comment on above: Result Comment: <0.3 4 UIU/ml HYPERTHYROID 0.34-5.60 UIU/ml EUTHYROID >5.60 UIU/ml HYPOTHYROID Performed By: #### C MP, LIPID, TSH #### [facility] [address] [place] [address] Jodi Posey PAP ACOG PANEL 2: 30 to 65on 09-22-2020 . . Normal [facility] Comment on above: Result Comment: Perf ormed at: WB Performed By: #### [id number] #### [facility] [address] [place] [address] Jodi Posey Age Gdln ACOG Testing 30-65 Normal [facility] Comment on above: Performed By: #### [id number] #### [facility] [address] [place] [address] Jodi Posey DIAGNOSIS: Comment Normal [facility] Comment on above: Result Comment: NEGA TIVE FOR INTRAEPITHELIAL LESION OR MALIGNANCY. MICROORGANISMS MORPHOLOGICALLY CONSISTENT WITH ACTINOMYCES SPECIES ARE PRESENT. SHIFT IN DARI SUGGESTIVE OF BACTERIAL VAGINOSIS. Performed at: WB Performed By: #### [id number] #### [facility] [address] [place] [address] Jodi Posey HPV Aptima Negative Normal Negative [facility] Comment on above: Result Comment: This nucleic acid amplification test detects fourteen high-risk HPV types (16,18,31,33,35,39,45,51,52,56,58,59,66,68) without differentiation. Performed at: =G Performed By: #### [id number] #### [facility] [address] [place], [place] [address] Jodi Posey Methodology: Comment Normal [facility] Comment on above: Result Comment: This liquid based ThinPrep(R) pap test was screened with the use of an image guided system. Performed at: WB Performed By: #### [id number] #### [facility] [address] [place], [place] [address] Jodi Posey Note: Comment Normal [facility] Comment on above: Result Comment: The Pap smear is a screening test designed to aid in the detection of premalignant and malignant conditions of the uterine cervix. It is not a diagnostic procedure and should not be used as the sole means of detecting cervical cancer. Both false-positive and false-negative reports do occur. . Performed at: WB Performed By: #### [id number] #### [facility] [address] [place] [address] Jodi Posey Performed by: Comment Normal [facility] Comment on above: Result Comment: Camila Navarro, Naval Architect (ASCP) Performed at: WB Performed By: #### [id number] #### [facility] [address] [place], [place] [address] Jodi Posey Specimen adequacy: Comment Normal [facility] Comment on above: Result Comment: Sati sfactory for evaluation. No endocervical component is identified. Performed at: WB Performed By: #### [id number] #### [facility] [address] [place], [place] [address] Jodi Posey Encounters Encounter Date Encounter Type Care Provider Facility Start: 07-25-2023 End: 07-25-2023 ambulatory ANGELIC KAUR Not Available Start: 07-09-2023 End: 07-09-2023 ambulatory ADENIKE SIVAN Not Available Start: 07-04-2023 End: 07-04-2023 ambulatory Shaikh Thu Facility:[facility] Start: 07-04-2023 End: 07-04-2023 ambulatory Adenike Sivan Work Phone: [facility] Work Phone: Start: 07-04-2023 End: 07-04-2023 Departed Referred Adenike Finnegan Work Phone: [facility] Work Phone: Start: 07-03-2023 End: 07-03-2023 ambulatory ANGELIC KAUR Not Available Start: 06-19-2023 End: 06-19-2023 ambulatory ADENIKE FINNEGAN Not Available Start: 03-18-2021 End: 03-19-[address] ANDRIY HIRSCH Facility:[facility] Start: 02-01-2021 Encounter for genera l adult medical examination without abnormal findings [facility] Start: 01-27-2021 End: 01-28-2021 ambulatory KHANESTER DAHL Facility:[facility] Start: 01-27-2021 End: 01-28-2021 Encounter for general adult medical examination without abnormal findings [facility] Facility[facility] Start: 09-17-2020 End: 09-17-[address] NICOLE RIDDLE Facility:[facility] Payers Date Payer Category Payer Self-pay 2023 Unknown [id number] 1985 Unknown [id number] 2.16.84 [id number] 1985 Unknown [id number] 2.16.84 [id number] 1985 Unknown [id number] 2.16.84 [id number] 1985 Unknown [id number] 1985 Unknown [id number] 2.16.840 [id number] 1985 Unknown [id number] 2.16.840 [id number] 1985 Unknown [id number] 2.16.840. [id number] 1959 Unknown [id number] 1959 Unknown [id number] Unknown [id number] 2.16.8 [id number] Social History Date Type Detail Facility [facility] Work Phone: Start: 1985 Sex Assigned At Female F [facility] Evaluation note Note Date & Type Note Facility Evaluation note No assessment information availa ble [facility] Work Phone: Summary Purpose Family History No Family History Records FoundNo Family History Records FoundNo Family History Records Found Advance Directives No Advanced Directives Records FoundNo Advanced Directives Records FoundNo Advanced Directives Records Found Additional Source Comments INFORMATION SOURCE (unrecogn ized section and content) DATE CREATED AUTHOR 04/02/2021 [facility] DATE CREATED AUTHOR AUTHOR'S ORGANIZ ATION 07/13/2023 [facility] DATE CREATED AUTHOR AUTHOR'S ORGANIZ ATION 07/26/2023 [facility] Care Teams (unrecognized sec tion and content) [...] BE BASED ON THE PRIMARY CLINICAL RECORDS. [employer] [facility]. provides no warranty or guarantee of the accuracy or completeness of information in this document.
[2023-07-27 11:30] VITALS: BP 118/77; PULSE 99; RESP 16; TEMP 36.4
[2023-07-27] MEDS: BETAMETHASONE ACE/BETAMETHASONE SOD PHOS 30 MG/5 ML 12 MG IM (11:30)
== END 2023-07-27 11:50 | disposition home or self-care (01) ==
LOC: FBCO 10:55 → FBC 11:20
PROVIDERS: PCP Internal Medicine; Visit Provider Obstetrics & Gynecology
DX: Z34.93 Encounter for supervision of normal pregnancy, unspecified, third trimester (principal)
CPT/HCPCS: 96372; J0702

== ENCOUNTER 2023-07-28 08:09 | Outpatient (OUT) | payer OTHER, SELFPAY ==
--- OUTSIDE RECORDS SUMMARY | 2023-07-28 08:11 | XMS_ITS | CCD ---
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 Patients having hematocrit values >55% require a special collection tube for coagulation studies. Please contact the laboratory at [phone] for redraw instructions. PERFORMED BY: [place] [address] PATHOLOGIST MELTER LOADER LETHA DOMÍNGUEZ M.D. Performed By: #### F IB-C #### [address] Fibrinogen [Mass/volume] in Platelet poor plasma by Coagulation assayOrdered By: Adenike Finnegan on 07-04-2023 Fibrinogen Coag (PPP) [Mass/Vol] 668 mg/dL 200-393 [facility] Comment on above: A hematocrit value g reater than 55% may lead to inaccurate results in coagulation testing. Patients having hematocrit values >55% require a special collection tube for coagulation studies. Please contact the laboratory at [phone] HEAD WO CONon [...] ANDRIY HIRSCH Date: 2021-03-18 17:02 Normal [facility] CBC AUTO DIFFon 01-27-2021 BASO # 0.1 103/ul Normal 0.0-0.1 [facility] Comment on above: Performed By: #### C BC #### [facility] [address] [place] [address] Jodi Taty Basophils/100 WBC (Bld) 1.1 % Normal 0.2-2.0 [facility] Comment on above: Performed By: #### C BC #### [facility] [address] [place] [address] Jodi Taty EO # 0.2 103/ul Normal 0.0-0.7 [facility] Comment on above: Performed By: #### C BC #### [facility] [address] [place] [address] Jodi Taty Eosinophils/100 WBC (Bld) 2.0 % Normal 0.9-7.0 [facility] Comment on above: Performed By: #### C BC #### [facility] [address] [place] [address] Jodi Taty Erythrocyte distribution width (RBC) [Ratio] 13.8 % Normal 11.0-15.0 [facility] Comment on above: Performed By: #### C BC #### [facility] [address] [place] [address] Jodi Taty Hematocrit (Bld) [Volume fraction] 47.4 % Normal 36.0-48.0 [facility] Comment on above: Performed By: #### C BC #### [facility] [address] [place], [place] [id number] Jodi Taty Hemoglobin (Bld) [Mass/Vol] 15.3 g/dL Normal 12.0-16.0 [facility] Comment on above: Performed By: #### C BC #### [facility] [address] [place] [address] Jodidoc Posey IG # 0.26 10e3/ul Critically high 0.00-0.03 [facility] Comment on above: Performed By: #### C BC #### [facility] [address] [address] Jodi Posey IG % 2.3 % Critically high 0.0-0.5 [facility] Comment on above: Performed By: #### C BC #### [facility] [address] [place] [address] Jodi Posey LYMPH # 2.4 103/ul Normal 1.2-3.8 [facility] Comment on above: Performed By: #### C BC #### [facility] [address] [place] [address] Jodi Posey Lymphocytes/100 WBC (Bld) 21.4 % Normal 20.5-60.0 [facility] Comment on above: Performed By: #### C BC #### [facility] [address] [place] [address] Jodi Posey MANUAL DIFF REQ NO Normal [facility] Comment on above: Performed By: #### C BC #### [facility] [address] [place] [address] Jodi Posey MCH (RBC) [Entitic mass] 29.5 pg Normal 26.7-34.0 [facility] Comment on above: Performed By: #### C BC #### [facility] [address] [place] [address] Jodi Posey MCHC (RBC) [Mass/Vol] 32.3 g/dL Normal 29.9-35.2 [facility] Comment on above: Performed By: #### C BC #### [facility] [address] [place] [address] Jodidoc Posey MCV (RBC) [Entitic vol] 91.5 fL Normal 81.0-99.0 [facility] Comment on above: Performed By: #### C BC #### [facility] [address] [place] [address] Jodidoc Vázquezen MONO # 0.6 103/ul Normal 0.3-0.8 [facility] Comment on above: Performed By: #### C BC #### [facility] [address] [place], [place] [address] Jodi Vázquezen Monocytes/100 WBC (Bld) 5.3 % Normal 1.7-12.0 [facility] Comment on above: Performed By: #### C BC #### [facility] [address] [id number] Jodi Posey NEUT # 7.6 103/ul Critically high 1.4-6.5 [facility] Comment on above: Performed By: #### C BC #### [facility] [address] [id number] Jodi Posey Neutrophils/100 WBC (Bld) 67.9 % Normal 43.0-75.0 [facility] Comment on above: Performed By: #### C BC #### [facility] [address] [place], [place] [id number] Jodi Posey Platelet mean volume (Bld) [Entitic vol] 11.2 fL Normal 9.5-13.5 [facility] Comment on above: Performed By: #### C BC #### [facility] [address] [place], [place] [address] Jodi Taty PLT 277 103/ul Normal 150-450 [facility] Comment on above: Performed By: #### C BC #### [facility] [address] [place], [place] [address] Jodi Taty RBC 5.18 106/ul Normal 4.20-5.40 [facility] Comment on above: Performed By: #### C BC #### [facility] [address] [place] [address] Jodi Taty WBC 11.3 103/ul Critically high 4.0-11.0 [facility] Comment on above: Performed By: #### C BC #### [facility] [address] [place], [place] [id number] Jodi Posey GLYCOHEMOGLOBIN A1Con 2020 ADA RECOMMENDATION ADA THERAPEUTIC TARGET 6.0 - 7.0 ACTION SUGGESTED > 7.0 Normal [facility] Comment on above: Performed By: #### A 1C #### [facility] [address] [place], [place] [address] Jodi Taty Glucose [Mass/Vol] 123 mg/dL Normal [facility] Comment on above: Performed By: #### A 1C #### [facility] [address] [place], [place] [address] Jodi Taty HbA1c (Bld) [Mass fraction] 5.9 % Normal <=6.0 [facility] Comment on above: Performed By: #### A 1C #### [facility] [address], [place] [address] Jodi Taty LIPID PROFILEon 01-27-2021 CHOL-HDL RATIO NORM SEE BELOW Normal [facility] Comment on above: Result Comment: 3.3 - 4.4 LOW RISK 4.4 - 7.1 AVERAGE RISK 7.1 - 11.0 MODERATE RISK >11.0 HIGH RISK Performed By: #### C MP, LIPID, TSH #### [facility] [address] [id number] Jodi Taty Cholesterol [Mass/Vol] 185 mg/dL Normal <=200 [facility] Comment on above: Performed By: #### C MP, LIPID, TSH #### [facility] [address] [address] Jodi Taty Cholesterol in HDL [Mass/Vol] 37 mg/dL Normal [facility] Comment on above: Performed By: #### C MP, LIPID, TSH #### [facility] [address] [address] Jodi Taty Cholesterol in LDL [Mass/Vol] 112.4 mg/dL Normal [facility] Comment on above: Performed By: #### C MP, LIPID, TSH #### [facility] [address] [place], [place] [address] Jodi Taty Cholesterol.total/Ch olesterol in HDL [Mass ratio] 5.0 {ratio} Normal [facility] Comment on above: Performed By: #### C MP, LIPID, TSH #### [facility] [address] [place], [place] [address] Jodi Taty HDL NORMAL > or = 60 mg/dl - LO W CARDIOVASCULAR RISK <40 mg/dl - HIGH CARDIOVASCULAR RISK Normal [facility] Comment on above: Performed By: #### C MP, LIPID, TSH #### [facility] [address] [place], [place] [address] Jodi Taty LDL CALC NORMAL SEE BELOW Normal [facility] Comment on above: Result Comment: <100 mg/dl OPTIMAL 100 - 129 mg/dl NEAR OR ABOVE OPTIMAL 130 - 159 mg/dl BORDERLINE HIGH 160 - 189 mg/dl HIGH >190 mg/dl VERY HIGH Performed By: #### C MP, LIPID, TSH #### [facility] [address] [place], [place] [address] Jodi Taty Triglyceride [Mass/Vol] 178 mg/dL Critically high <=150 [facility] Comment on above: Performed By: #### C MP, LIPID, TSH #### [facility] [address] [place], [place] [address] Jodi Taty VLDL CALC 35.6 mg/dL Normal [facility] Comment on above: Performed By: #### C MP, LIPID, TSH #### [facility] [address] [place], [place] [address] Jodi Taty PROF 14(COMP METB)on 021 Albumin [Mass/Vol] 3.8 g/dL Normal 3.5-5.0 [facility] Comment on above: Performed By: #### C MP, LIPID, TSH #### [facility] [address] [place], [place] [address] Jodi Taty Albumin/Globulin [Mass ratio] 1.1 {ratio} Normal [facility] Comment on above: Performed By: #### C MP, LIPID, TSH #### [facility] [address] [place], [place] [address] Jodi Taty ALP [Catalytic activity/Vol] 68 U/L Normal 38-126 [facility] Comment on above: Performed By: #### C MP, LIPID, TSH #### [facility] [address] [place], [place] [address] Jodi Taty ALT [Catalytic activity/Vol] 30 U/L Normal 9-52 [facility] Comment on above: Performed By: #### C MP, LIPID, TSH #### [facility] [address] [address] Jodi Taty Anion gap [Moles/Vol] 12.8 mmol/L Normal [facility] Comment on above: Performed By: #### C MP, LIPID, TSH #### [facility] [address] [address] Jodi Taty AST [Catalytic activity/Vol] 19 U/L Normal 14-36 [facility] Comment on above: Performed By: #### C MP, LIPID, TSH #### [facility] [address] [address] Jodi Taty Bilirubin [Mass/Vol] 0.2 mg/dL Normal 0.2-1.3 [facility] Comment on above: Performed By: #### C MP, LIPID, TSH #### [facility] [address] [address] Jodi Taty Calcium [Mass/Vol] 9.3 mg/dL Normal 8.4-10.2 [facility] Comment on above: Performed By: #### C MP, LIPID, TSH #### [facility] [address] [address] Jodi Taty Chloride [Moles/Vol] 104 mmol/L Normal 98-107 [facility] Comment on above: Performed By: #### C MP, LIPID, TSH #### [facility] [address] [address] Jodi Taty CO2 [Moles/Vol] 29.2 mmol/L Normal 22.0-30.0 [facility] Comment on above: Performed By: #### C MP, LIPID, TSH #### [facility] [address] [address] Jodi Taty Creatinine [Mass/Vol] 0.80 mg/dL Normal 0.52-1.04 [facility] Comment on above: Performed By: #### C MP, LIPID, TSH #### [facility] [address] [address] Jodi Taty EGFR-AF [place]TH [place]OREAN >60 Normal >=60 [facility] Comment on above: Performed By: #### C MP, LIPID, TSH #### [facility] [address] [place], [place] [address] Jodi Taty EGFR-NON AF [place]TH [place]OREAN >60 Normal >=60 [facility] Comment on above: Performed By: #### C MP, LIPID, TSH #### [facility] [address], [place] [address] Jodi Taty Globulin (S) [Mass/Vol] 3.4 g/dL Normal [facility] Comment on above: Performed By: #### C MP, LIPID, TSH #### [facility] [address] [address] Jodi Taty Glucose [Mass/Vol] 89 mg/dL Normal 74-106 [facility] Comment on above: Performed By: #### C MP, LIPID, TSH #### [facility] [address] [address] Jodi Taty Potassium [Moles/Vol] 4.0 mmol/L Normal 3.4-5.0 [facility] Comment on above: Performed By: #### C MP, LIPID, TSH #### [facility] [address] [address] Jodi Taty Protein [Mass/Vol] 7.2 g/dL Normal 6.1-8.2 [facility] Comment on above: Performed By: #### C MP, LIPID, TSH #### [facility] [address] [address] Jodi Taty Sodium [Moles/Vol] 142 mmol/L Normal 137-145 [facility] Comment on above: Performed By: #### C MP, LIPID, TSH #### [facility] [address] [address] Jodi Taty Urea nitrogen [Mass/Vol] 11.0 mg/dL Normal 7.0-17.0 [facility] Comment on above: Performed By: #### C MP, LIPID, TSH #### [facility] [address] [address] Jodi Taty Urea nitrogen/Creatinine [Mass ratio] 13.8 mg/mg Normal [facility] Comment on above: Performed By: #### C MP, LIPID, TSH #### [facility] [address] [place] [address] Jodi Posey TSHon 01-27-2021 TSH 3.187 uIU/mL Normal 0.470-4.680 [facility] Comment on above: Performed By: #### C MP, LIPID, TSH #### [facility] [address] [place] [address] Jodi Posey TSH RANGE SEE BELOW Normal [facility] Comment on above: Result Comment: <0.3 4 UIU/ml HYPERTHYROID 0.34-5.60 UIU/ml EUTHYROID >5.60 UIU/ml HYPOTHYROID Performed By: #### C MP, LIPID, TSH #### [facility] [address] [place] [address] Jodi Posey PAP ACOG PANEL 2: 30 to 65on 09-22-2020 . . Normal [facility] Comment on above: Result Comment: Perf ormed at: WB Performed By: #### [id number] #### [facility] [address] [place] [address] Jodi Posey Age Gdln ACOG Testing 30-65 Normal [facility] Comment on above: Performed By: #### [id number] #### [facility] [address] [place] [address] Jodi Posey DIAGNOSIS: Comment Normal [facility] Comment on above: Result Comment: NEGA TIVE FOR INTRAEPITHELIAL LESION OR MALIGNANCY. MICROORGANISMS MORPHOLOGICALLY CONSISTENT WITH ACTINOMYCES SPECIES ARE PRESENT. SHIFT IN DARI SUGGESTIVE OF BACTERIAL VAGINOSIS. Performed at: WB Performed By: #### [id number] #### [facility] [address] [place] [address] Jodi Posey HPV Aptima Negative Normal Negative [facility] Comment on above: Result Comment: This nucleic acid amplification test detects fourteen high-risk HPV types (16,18,31,33,35,39,45,51,52,56,58,59,66,68) without differentiation. Performed at: =G Performed By: #### [id number] #### [facility] [address] [place], [place] [address] Jodi Posey Methodology: Comment Normal [facility] Comment on above: Result Comment: This liquid based ThinPrep(R) pap test was screened with the use of an image guided system. Performed at: WB Performed By: #### [id number] #### [facility] [address] [place], [place] [address] Jodi Posey Note: Comment Normal [facility] Comment on above: Result Comment: The Pap smear is a screening test designed to aid in the detection of premalignant and malignant conditions of the uterine cervix. It is not a diagnostic procedure and should not be used as the sole means of detecting cervical cancer. Both false-positive and false-negative reports do occur. . Performed at: WB Performed By: #### [id number] #### [facility] [address] [place] [address] Jodi Posey Performed by: Comment Normal [facility] Comment on above: Result Comment: Camila Navarro, Mail Clerk (ASCP) Performed at: WB Performed By: #### [id number] #### [facility] [address] [place], [place] [address] Jodi Posey Specimen adequacy: Comment Normal [facility] Comment on above: Result Comment: Sati sfactory for evaluation. No endocervical component is identified. Performed at: WB Performed By: #### [id number] #### [facility] [address] [place], [place] [address] Jodi Posey Encounters Encounter Date Encounter Type Care Provider Facility Start: 07-25-2023 End: 07-25-2023 ambulatory ANGELIC KAUR Not Available Start: 07-09-2023 End: 07-09-2023 ambulatory ADENIKE SIVAN Not Available Start: 07-04-2023 End: 07-04-2023 ambulatory Shaikh Thu Facility:[facility] Start: 07-04-2023 End: 07-04-2023 ambulatory Adenike Sivan Work Phone: [facility] Work Phone: Start: 07-04-2023 End: 07-04-2023 Departed Referred Adenike Finnegan Work Phone: [facility] [place] Work Phone: Start: 07-03-2023 End: 07-03-2023 ambulatory ANGELIC KAUR Not Available Start: 06-19-2023 End: 06-19-2023 ambulatory ADENIKE FINNEGAN Not Available Start: 03-18-2021 End: 03-19-[address] ANDRIY HIRSCH Facility:[facility] Start: 02-01-2021 Encounter for genera l adult medical examination without abnormal findings [facility] Start: 01-27-2021 End: 01-28-2021 ambulatory KHANESTER DAHL Facility:[facility] Start: 01-27-2021 End: 01-28-2021 Encounter for general adult medical examination without abnormal findings [facility] Start: 09-17-2020 End: 09-17-[address] NICOLE RIDDLE Facility:[facility] Payers Date Payer Category Payer Self-pay 2023 Unknown [id number] 1985 Unknown [id number] 2.16.84 [id number] 1985 Unknown [id number] 2.16.84 [id number] 1985 Unknown [id number] 2.16.84 [id number] 1985 Unknown [id number] 1985 Unknown [id number] [id number] 1985 Unknown [id number] [id number] 1985 Unknown [id number] [id number]. [id number] 1959 Unknown [id number] 1959 Unknown [id number] Unknown [id number] 2.16.8 [id number] Social History Date Type Detail Facility [facility] Work Phone: Start: 1985 Sex Assigned At Female F [facility] Evaluation note Note Date & Type Note Facility Evaluation note No assessment information availa ble [facility] Work Phone: Summary Purpose Family History No Family History Records FoundNo Family History Records FoundNo Family History Records Found Advance Directives No Advanced Directives Records FoundNo Advanced Directives Records FoundNo Advanced Directives Records Found Additional Source Comments INFORMATION SOURCE (unrecogn ized section and content) DATE CREATED AUTHOR 04/02/2021 [facility] DATE CREATED AUTHOR AUTHOR'S ORGANIZ ATION 07/13/2023 [facility] DATE CREATED AUTHOR AUTHOR'S ORGANIZ ATION 07/26/2023 [facility] Care Teams (unrecognized sec tion [...] BE BASED ON THE PRIMARY CLINICAL RECORDS. [employer] [facility]. provides no warranty or guarantee of the accuracy or completeness of information in this document.
[2023-07-28 11:40] VITALS: BP 136/91; PULSE 113
[2023-07-28] MEDS: BETAMETHASONE ACE/BETAMETHASONE SOD PHOS 30 MG/5 ML 12 MG IM (11:48)
[2023-07-28 11:51] VITALS: BP 132/85; PULSE 97
== END 2023-07-28 12:05 | disposition home or self-care (01) ==
LOC: FBCO 08:09 → FBC 11:31
PROVIDERS: PCP Internal Medicine; Visit Provider Obstetrics & Gynecology
DX: Z34.93 Encounter for supervision of normal pregnancy, unspecified, third trimester (principal)
CPT/HCPCS: 59025; J0702

== ENCOUNTER 2023-07-31 05:46 | Inpatient (IN) | payer OTHER, SELFPAY ==
[2023-07-31] VITALS (14 sets, daily range): BP systolic 129–151; BP diastolic 70–102; PULSE 94–109; RESP 13–22; TEMP 36.5–37.2; O2SAT 96–97
[2023-07-31] MEDS: 0.9 % SODIUM CHLORIDE 1,000 ML 1000 ML IV (06:15)
[2023-07-31 06:56] LABS: Hematocrit 33.4 % (36.0-48.0); Hemoglobin 10.8 g/dL (12.0-16.0); Mean Corpuscular HGB Conc 32.3 g/dL (29.9-35.2); Mean Corpuscular Hemoglobin 28.9 pg (26.7-34.0); Mean Corpuscular Volume 89.3 fL (81.0-99.0); Mean Platelet Volume 10.7 fL (9.5-13.5); Platelet Count 278 10^3/uL (150-450); Red Blood Count 3.74 10^6/uL (4.20-5.40); Red Cell Distribution Width 14.9 % (11.0-15.0); White Blood Count 15.1 10^3/uL (4.0-11.0)
[2023-07-31] MEDS: CEFAZOLIN SODIUM/DEXTROSE,ISO 2 GM/50 ML PIGGYBACK IV ×2 (07:02→18:17)
[2023-07-31] MEDS: CITRIC ACID/SODIUM CITRATE 30 ML SOLUTION ORACIT SHOHL'S SOLN PO (07:03)
[2023-07-31] MEDS: FAMOTIDINE/PF 20 MG/2 ML VIAL IV (07:04)
[2023-07-31 07:28] LABS: Segmented Neut Absolute Manual 9.66 10^3/uL (1.4-6.5)
[2023-07-31 07:29] LABS: Anisocytosis 1+; Band Neutrophils Absolute 1.4 10^3/uL (0.0-0.3); Lymphocytes Absolute Manual 2.26 10^3/uL (1.20-3.80); Monocytes Absolute Manual 1.51 10^3/uL (0.30-0.80)
[2023-07-31 07:49] LABS: Bilirubin Urine NEGATIVE (NEGATIVE); Blood Urine NEGATIVE (NEGATIVE); Clarity Urine CLEAR (CLEAR); Color Urine LT. YELLOW (YELLOW); Glucose Urine UA NEGATIVE (NEGATIVE); Ketones Urine NEGATIVE (NEGATIVE); Leukocyte Esterase Urine NEGATIVE (NEGATIVE); Nitrite Urine NEGATIVE (NEGATIVE); Protein Urine NEGATIVE (NEG/TRACE); Specific Gravity Urine 1.015 (1.005-1.025); Urobilinogen Urine 0.2 EU/dL (0.2-1.0)
[2023-07-31 08:00] LABS: Amphetamine Screen Urine NEGATIVE (NEGATIVE); Barbiturates Screen Urine NEGATIVE (NEGATIVE); Benzodiazepines Screen Urine NEGATIVE (NEGATIVE); Buprenorphine Screen Urine NEGATIVE (NEGATIVE); Cannabinoid Screen Urine NEGATIVE (NEGATIVE); Cocaine Screen Urine NEGATIVE (NEGATIVE); Methadone Screen Urine NEGATIVE (NEGATIVE); Methamphetamines Screen Urine NEGATIVE (NEGATIVE); Opiate Screen Urine NEGATIVE (NEGATIVE); Oxycodone Screen Urine NEGATIVE (NEGATIVE); Phencyclidine Screen Urine NEGATIVE (NEGATIVE); Tricyclic Antidepressant Urine NEGATIVE (NEGATIVE)
[2023-07-31 08:01] LABS: Bacteria Urine NONE SEEN #/HPF (NONE SEEN); Cast Seen? NONE SEEN #/LPF (NONE SEEN); Crystals Seen? None Seen #/HPF (None Seen); Mucus Urine NONE SEEN (NONE SEEN); RBC Urine NONE SEEN #/HPF (0-2); Squamous Epithelial Cell Urine NONE SEEN #/LPF (NONE/RARE); WBC Urine NONE SEEN #/HPF (NONE SEEN)
[2023-07-31] MEDS: LACTATED RINGER'S SOLUTION 1,000 ML 50 ML IV (08:02)
--- NOTE | 2023-07-31 08:37 | P.ON_ITS ---
Brief Operative Note Date of procedure: 07/31/23 Pre-op diagnosis: iup at 37wks, chronic htn, previous c/s Post-op diagnosis: same as pre-op Procedure: NAME OF PROCEDURE: [ section ] PROCEDURE: Patient was taken back to the Operating Room where she was given a spinal anesthesia with Duramorph without difficulty. She was prepped and draped in the normal sterile fashion. A Pfannenstiel skin incision was then made 2 cm above the symphysis pubis and carried down to underlying rectus fascia using a Bovie. The fascia was incised in the midline and extended laterally using Haas scissors. Two Amaya clamps were placed on the superior aspect of the fascia and dissected off the underlying rectus muscles. The same was performed on the inferior aspect as well. The muscles were then in the midline. Peritoneum was identified and entered bluntly. The peritoneum was then extended superiorly and inferiorly with good visualization of the bladder. The bladder blade was inserted. A low transverse incision was made on the patient's uterus and extended laterally digitally. The infant was then delivered atraumatically after the bladder blade was removed in the cephalic position. The cord was clamped and cut. Cord blood was obtained. The infant was handed off to awaiting team. The patient's placenta was spontaneously delivered. The uterus was then exteriorized. The uterus was cleared of all clots and debris. The bladder blade was reinserted. The patient's uterine incision was closed using #0 Vicryl in a running lock fashion. Excellent hemostasis was assured. The uterus was then returned to the patient's abdomen. The patient's abdomen was copiously irrigated using warm saline. Peritoneal gutters were cleared of all clots and debris. Again excellent hemostasis was assured. The patient's peritoneum was closed using 3-0 Vicryl in a running fashion. The patient's fascia was closed using #0 Vicryl in a running fashion. The patient's skin was closed using 4-0 Vicryl subcuticularly. The patient tolerated the procedure well. Sponge, lap, and needle counts were correct x2. The patient was taken to the Recovery Room in stable condition. Anesthesia: spinal Surgeon: Karsten Finnegan Special Weapons And Tactics Officer: Leti Scott Estimated blood loss (mL): 575 Pathology: other (placenta) Condition: stable Disposition: PACU Urinary Catheter Management Urinary Catheter Management Urethral: Cath placed during this visit: yes Urethral indwelling: No Insertion date: 07/31/23 Insertion time: 06:30
--- NOTE | 2023-07-31 08:39 | PM.OBPRCCS ---
Procedure Pre-op/Post-op diagnoses: Pre-Op/Post-Op Diagnoses Operation Date: 07/31/23 07:30 <No data on this case meets the specified criteria> Procedure: Procedures Operation Date: 07/31/23 07:30 Actual Procedure Side Surgeon p Repeat Not Applicable Karsten Finnegan DO Keg Varnisher: Leti Scott Estimated blood loss (mL): 575 Disposition: PACU Anesthesia type: Spinal
[2023-07-31] MEDS: OXYTOCIN/0.9 % SODIUM CHLORIDE 20 UNITS/1,000 ML PLAST..BAG 200 UNIT IV (09:16)
[2023-07-31] MEDS: KETOROLAC TROMETHAMINE 30 MG/ML VIAL IVP (18:16)
[2023-07-31] MEDS: ONDANSETRON PF 4 MG/2 ML VIAL IV (18:17)
--- NOTE | 2023-07-31 19:03 | PC.NURSE ---
wood catheter out at 184
[2023-07-31] MEDS: ENOXAPARIN SODIUM 40 MG/0.4 ML SYRINGE SUBQ (20:40)
[2023-08-01] VITALS (8 sets, daily range): BP systolic 118–136; BP diastolic 56–73; PULSE 81–95; RESP 18; TEMP 36.8–37.4
[2023-08-01] MEDS: KETOROLAC TROMETHAMINE 30 MG/ML VIAL IVP ×4 (00:06→21:30)
[2023-08-01 06:33] LABS: Basophils Absolute Auto 0.1 10^3/uL (0.0-0.1); Basophils Percent Auto 0.5 % (0.2-2.0); Eosinophils Absolute Auto 0.2 10^3/uL (0.0-0.7); Hematocrit 27.6 % (36.0-48.0); Immature Granulocytes Pct Auto 7.6 % (0.0-0.5); Lymphocytes Absolute Auto 2.5 10^3/uL (1.2-3.8); Lymphocytes Percent Auto 15.7 % (20.5-60.0); Mean Corpuscular HGB Conc 32.6 g/dL (29.9-35.2); Mean Platelet Volume 10.1 fL (9.5-13.5); Monocytes Absolute Auto 1.1 10^3/uL (0.3-0.8); Monocytes Percent Auto 6.7 % (1.7-12.0); Neutrophils Absolute Auto 10.8 10^3/uL (1.4-6.5); Neutrophils Percent Auto 68.5 % (43.0-75.0); Platelet Count 262 10^3/uL (150-450); Red Cell Distribution Width 15.1 % (11.0-15.0); White Blood Count 15.7 10^3/uL (4.0-11.0)
--- NOTE | 2023-08-01 09:05 | PM.OBPN ---
OB - PN: Subj Subjective Patient comments: no complaints and pain well controlled [place] status: doing well Exam Constitutional Vital Signs, click to edit/add: Last Vital Signs Temp 99.3 F 08/01/23 04:05 Pulse 81 08/01/23 04:05 Resp 18 08/01/23 04:05 BP 118/56 08/01/23 04:05 Pulse Ox 96 07/31/23 09:30 O2 Del Method Room Air 08/01/23 04:05 Documenting provider has reviewed patient's vital signs: yes Common normals: no apparent distress Respiratory Common normals: normal respiratory effort and clear to auscultation bilaterally Cardio Common normals: regular rate and regular rhythm GI Common normals: Normal to inspection, nondistended, normoactive bowel sounds present Common normals: no CVA tenderness Extremity Common normals: no clubbing, cyanosis or edema Results Labs Labs: Short CBC 08/01/23 Range/Units 06:20 WBC 15.7 H (4.0-11.0) 10^3/uL Hgb 9.0 L (12.0-16.0) g/dL Hct 27.6 L (36.0-48.0) % Plt Count 262 (150-450) 10^3/uL Urinary Catheter Management Urinary Catheter Management Urethral: Cath placed during this visit: yes, but has since been removed by the nurse Urethral indwelling: No Insertion date: 07/31/23 Insertion time: 06:30 Removal date: 07/31/23 Removal time: 18:45 OB - PN: A/P Plan - day: 1 Plan: routine postop care Time Spent with Patient Time: Total time spent is greater than 50% in coordination of care (as documented) at patient's floor/unit and/or counseling patient: Total time spent with greater than 50% in coordination of care (as documented) at patient's floor/unit and/or counseling patient: less than 15 minutes
--- NOTE | 2023-08-01 12:08 | PC.NURSE ---
Pt holding infant, stats feeding is going well Slow to start but is now feeding better . States breast fed previous child and has no questions at this time. Handouts given with discussion, pt receptive.
[2023-08-01] MEDS: DOCUSATE SODIUM 100 MG CAPSULE PO ×2 (12:56→21:31)
--- NOTE | 2023-08-01 15:36 | PC.NURSE ---
Encouraged mom to Breast frequently, need motivation to try to wake baby.,
--- NOTE | 2023-08-01 16:33 | PC.NURSE ---
1600 abdominal dressing removed, incision HEADING PINNER with steri strips dry and intact. Patient does not want IV covered to shower, refusing to shower until after next dose of Toradol given.
[2023-08-01] MEDS: ENOXAPARIN SODIUM 40 MG/0.4 ML SYRINGE SUBQ (21:30)
[2023-08-02] VITALS (8 sets, daily range): BP systolic 133–151; BP diastolic 71–87; PULSE 77–94; RESP 16–18; TEMP 36.6–36.9
[2023-08-02] MEDS: KETOROLAC TROMETHAMINE 30 MG/ML VIAL IVP (03:36)
--- NOTE | 2023-08-02 07:23 | W.PC.ACHO ---
Registration Status: ADM IN Primary Language: Barbadian Preferred Language: Barbadian Report given. CAre is relinguished Active Medications Generic Name Dose Route Start Last Admin Trade Name Freq PRN Reason Stop Dose Admin Al Hydroxide/Mg Hydroxide 2,400 mg 07/31/23 08:35 Magnesium Hydroxide 2,400 Mg/10 Ml Oral.Susp PO Q6H PRN Dyspepsia Carboprost Tromethamine 250 mcg 07/31/23 05:53 Carboprost Tromethamine 250 Mcg/Ml 1 Ml Vial IM 08/01/23 09:00 Q15M PRN Bleeding Diphenhydramine HCl 25 mg 07/31/23 08:35 Diphenhydramine Hcl 50 Mg/Ml (1ml) Vial IV 08/01/23 08:36 Q6H PRN Itching Docusate Sodium 100 mg 08/01/23 09:00 Docusate Sodium 100 Mg Capsule PO BID ELIZABETH Enoxaparin Sodium 40 mg 07/31/23 20:00 07/31/23 20:40 Enoxaparin Sodium 40 Mg/0.4 Ml Syringe SUBQ 40 mg Q24H ELIZABETH Administration Sodium Chloride 1,000 mls @ 125 mls/hr 07/31/23 09:00 Sodium Chloride 0.9% 1,000 Ml IV .Q8H ELIZABETH Ibuprofen 800 mg 07/31/23 08:35 Ibuprofen 400 Mg Tablet PO Q8H PRN Pain Ketorolac Tromethamine 30 mg 07/31/23 08:35 08/01/23 06:11 Ketorolac Tromethamine 30 Mg/Ml Vial IVP 08/02/23 08:36 30 mg Q6H PRN Administration Pain Methylergonovine Maleate 0.2 mg 07/31/23 05:53 Methylergonovine Maleate 0.2 Mg/Ml Ampule IM 08/01/23 09:00 ONCE PRN Uterine Contractility/Contract Methylergonovine Maleate 0.2 mg 07/31/23 05:53 Methylergonovine Maleate 0.2 Mg Tablet PO 08/01/23 09:00 Q4H PRN Uterine Contractility/Contract Misoprostol 600 mcg 07/31/23 05:53 Misoprostol 100 Mcg Tablet PO 08/01/23 09:00 ONCE PRN Uterine Bleeding Misoprostol 800 mcg 07/31/23 05:53 Misoprostol 100 Mcg Tablet SL 08/01/23 09:00 ONCE PRN Uterine Bleeding Misoprostol 1,000 mcg 07/31/23 05:53 Misoprostol 100 Mcg Tablet UT 08/01/23 09:00 ONCE PRN Uterine Bleeding Ondansetron HCl 4 mg 07/31/23 08:35 07/31/23 18:17 Ondansetron Pf 4 Mg/2 Ml Vial IV 4 mg Q6H PRN Administration Nausea And Vomiting Ondansetron HCl 4 mg 07/31/23 08:35 Ondansetron 4 Mg Rapdis Tablet PO Q6H PRN Nausea And Vomiting Oxycodone/Acetaminophen 1 tab 07/31/23 08:35 Oxycodone Hcl/Acetaminophen 5mg/325mg PO Q4H PRN Pain Scale 4-6 Oxycodone/Acetaminophen 2 tab 07/31/23 08:35 Oxycodone Hcl/Acetaminophen 5mg/325mg PO Q4H PRN Pain Scale 7-10 Senna 17.2 mg 07/31/23 20:00 Sennosides 8.6 Mg Tablet PO QHS PRN Constipation Simethicone 80 mg 07/31/23 08:35 Simethicone 80 Mg Tab.Chew PO QID PRN Abdominal Distention Diet Category Date Time Status Regular Consistency Diet Diet 07/31/23 08:35 Active Respiratory Lung sounds [Bilateral clear Throughout] Lung sounds [Bilateral clear Throughout] Lung sounds [Bilateral clear Throughout] Pulse Oximetry 96 Pulse Oximetry 96 Pulse Oximetry 97 Pulse Oximetry 97 Pulse Oximetry 96 Pulse Oximetry 97 Pulse Oximetry 96 Oxygen Delivery Method Room Air Oxygen Delivery Method Room Air Oxygen Delivery Method Room Air Oxygen Delivery Method Room Air Oxygen Delivery Method Room Air Oxygen Delivery Method Room Air Oxygen Delivery Method Room Air Oxygen Delivery Method Room Air Oxygen Delivery Method Room Air Oxygen Delivery Method Room Air Catheter Urinary Catheter Date of 07/31/23 Insertion [Urethral] Urinary Catheter Date of 07/31/23 Insertion [Urethral] Urinary Catheter Time of 06:30 Insertion [Urethral] Urinary Catheter Time of 06:30 Insertion [Urethral] Date Urinary Catheter Removed 07/31/23 [Urethral] Time Urinary Catheter 18:45 Discontinued [Urethral]
[2023-08-02] MEDS: IBUPROFEN 400 MG TABLET 800 MG PO ×2 (09:11→19:15)
[2023-08-02] MEDS: DOCUSATE SODIUM 100 MG CAPSULE PO (09:11)
--- NOTE | 2023-08-02 11:48 | PM.OBPN ---
OB - PN: Subj Subjective Patient comments: incisional pain [place] status: well feeding status: exclusively Exam Narrative Exam Narrative: complains of incisional pain Constitutional Vital Signs, click to edit/add: Last Vital Signs Temp 97.9 F 08/02/23 09:37 Pulse 79 08/02/23 09:37 Resp 16 08/02/23 09:37 BP 151/81 H 08/02/23 09:37 Pulse Ox 96 07/31/23 09:30 O2 Del Method Room Air 08/02/23 09:37 Documenting provider has reviewed patient's vital signs: yes Common normals: no apparent distress, no limitations and well nourished General appearance: cooperative Orientation/consciousness: Yes awake, Yes oriented to person, Yes oriented to place and Yes oriented to time HENMT Common normals: normocephalic and head/scalp atraumatic Eye Pupil: PERRL and accommodation reflex normal Neck & C-Spine Common normals: full ROM and supple Respiratory Common normals: normal respiratory effort Cardio Common normals: regular rate and regular rhythm GI Common normals: Normal to inspection, nondistended, normoactive bowel sounds present and soft to palpation Common normals: no CVA tenderness Extremity Common normals: normal to inspection, full ROM and no calf tenderness Neuro Common normals: oriented x3, CN's II-XII intact bilaterally, moves all extremities, no focal motor deficits and no sensory deficits noted Psych Common normals: mental status grossly normal, thought process normal and affect normal Urinary Catheter Management Urinary Catheter Management Urethral: Cath placed during this visit: yes, but has since been removed by the nurse Urethral indwelling: No Insertion date: 07/31/23 Insertion time: 06:30 Removal date: 07/31/23 Removal time: 18:45 OB - PN: A/P Assessment and Plan (1) Hypertension: Assessment and Plan: HAD BEEN ON LABETALOL 200 MG BID PREOP. WAS NOT ORDERED POSTOP. RESTARTING LABETALOL 100 MG PO BID BLOOD PRESSURES ELEVATED WITHOUT SYMPTOMS (2) Previous section: Assessment and Plan: DELIVERED. DOING WELL. INCISION PAIN WELL CONTROLLED WITH PAIN MEDICATION Plan ROUTINE POST POST OP CARE Plan - day: 2 Plan: routine postop care Time Spent with Patient Time: Total time spent is greater than 50% in coordination of care (as documented) at patient's floor/unit and/or counseling patient: Total time spent with greater than 50% in coordination of care (as documented) at patient's floor/unit and/or counseling patient: less than 15 minutes
[2023-08-02] MEDS: LABETALOL HCL 200 MG TABLET 100 MG PO ×2 (13:43→21:48)
--- NOTE | 2023-08-02 13:59 | PC.NURSE ---
LC into room and parents both states baby is doing great At this time blood sugars for being monitored due to pre-feed spot check of 44. Discussed feeding and deep latching. Mom does not report sore nipples or broken skin on nipples. States she latches well Does note more sleepy than last baby. Discussed LPI and impact on for and milk supply. Given handout for same to support idea of feed at the breast, offer easy milk as able. Easy milk is pumped milk after NB comes off the breast. baby may tire more easily, have a weaker suck than full term infant. Parents both receptive to idea of easy milk for NB. Plan reviewed to feed every 2-2.5 hours , pump after baby comes off the breast and offer any expressed milk including drops to baby. No questions at this time.
[2023-08-02] MEDS: OXYCODONE HCL/ACETAMINOPHEN 5MG/325MG 1 TAB PO (15:39)
--- NOTE | 2023-08-02 19:13 | W.PC.ACHO ---
Registration Status: ADM IN Primary Language: Macedonian Preferred Language: Macedonian Active Medications Generic Name Dose Route Start Last Admin Trade Name Freq PRN Reason Stop Dose Admin Al Hydroxide/Mg Hydroxide 2,400 mg 07/31/23 08:35 Magnesium Hydroxide 2,400 Mg/10 Ml Oral.Susp PO Q6H PRN Dyspepsia Docusate Sodium 100 mg 08/01/23 09:00 08/02/23 09:11 Docusate Sodium 100 Mg Capsule PO 100 mg BID ELIZABETH Administration Enoxaparin Sodium 40 mg 07/31/23 20:00 08/01/23 21:30 Enoxaparin Sodium 40 Mg/0.4 Ml Syringe SUBQ 40 mg Q24H ELIZABETH Administration Sodium Chloride 1,000 mls @ 125 mls/hr 07/31/23 09:00 Sodium Chloride 0.9% 1,000 Ml IV .Q8H ELIZABETH Ibuprofen 800 mg 07/31/23 08:35 08/02/23 09:11 Ibuprofen 400 Mg Tablet PO 800 mg Q8H PRN Administration Pain Labetalol HCl 100 mg 08/02/23 13:00 08/02/23 13:43 Labetalol Hcl 200 Mg Tablet PO 100 mg BID ELIZABETH Administration Ondansetron HCl 4 mg 07/31/23 08:35 07/31/23 18:17 Ondansetron Pf 4 Mg/2 Ml Vial IV 4 mg Q6H PRN Administration Nausea And Vomiting Ondansetron HCl 4 mg 07/31/23 08:35 Ondansetron 4 Mg Rapdis Tablet PO Q6H PRN Nausea And Vomiting Oxycodone/Acetaminophen 1 tab 07/31/23 08:35 08/02/23 15:39 Oxycodone Hcl/Acetaminophen 5mg/325mg PO 1 tab Q4H PRN Administration Pain Scale 4-6 Oxycodone/Acetaminophen 2 tab 07/31/23 08:35 Oxycodone Hcl/Acetaminophen 5mg/325mg PO Q4H PRN Pain Scale 7-10 Senna 17.2 mg 07/31/23 20:00 Sennosides 8.6 Mg Tablet PO QHS PRN Constipation Simethicone 80 mg 07/31/23 08:35 Simethicone 80 Mg Tab.Chew PO QID PRN Abdominal Distention Respiratory Oxygen Delivery Method Room Air Oxygen Delivery Method Room Air Oxygen Delivery Method Room Air Cardiology Heart Sounds Strong,Regular Renal Bladder Pattern Continent Catheter Urinary Catheter Date of 07/31/23 Insertion [Urethral] Urinary Catheter Time of 06:30 Insertion [Urethral] Date Urinary Catheter Removed 07/31/23 [Urethral] Time Urinary Catheter 18:45 Discontinued [Urethral]
[2023-08-02] MEDS: OXYCODONE HCL/ACETAMINOPHEN 5MG/325MG 2 TAB PO (21:48)
[2023-08-02] MEDS: ENOXAPARIN SODIUM 40 MG/0.4 ML SYRINGE SUBQ (21:48)
[2023-08-03] MEDS: IBUPROFEN 400 MG TABLET 800 MG PO ×2 (05:27→13:17)
--- NOTE | 2023-08-03 07:45 | W.PC.ACHO ---
Registration Status: ADM IN Primary Language: Central African Preferred Language: [place] African Active Medications Generic Name Dose Route Start Last Admin Trade Name Freq PRN Reason Stop Dose Admin Al Hydroxide/Mg Hydroxide 2,400 mg 07/31/23 08:35 Magnesium Hydroxide 2,400 Mg/10 Ml Oral.Susp PO Q6H PRN Dyspepsia Docusate Sodium 100 mg 08/01/23 09:00 08/02/23 09:11 Docusate Sodium 100 Mg Capsule PO 100 mg BID ELIZABETH Administration Enoxaparin Sodium 40 mg 07/31/23 20:00 08/02/23 21:48 Enoxaparin Sodium 40 Mg/0.4 Ml Syringe SUBQ 40 mg Q24H ELIZABETH Administration Sodium Chloride 1,000 mls @ 125 mls/hr 07/31/23 09:00 Sodium Chloride 0.9% 1,000 Ml IV .Q8H ELIZABETH Ibuprofen 800 mg 07/31/23 08:35 08/03/23 05:27 Ibuprofen 400 Mg Tablet PO 800 mg Q8H PRN Administration Pain Labetalol HCl 100 mg 08/02/23 13:00 08/02/23 21:48 Labetalol Hcl 200 Mg Tablet PO 100 mg BID ELIZABETH Administration Ondansetron HCl 4 mg 07/31/23 08:35 07/31/23 18:17 Ondansetron Pf 4 Mg/2 Ml Vial IV 4 mg Q6H PRN Administration Nausea And Vomiting Ondansetron HCl 4 mg 07/31/23 08:35 Ondansetron 4 Mg Rapdis Tablet PO Q6H PRN Nausea And Vomiting Oxycodone/Acetaminophen 1 tab 07/31/23 08:35 08/02/23 15:39 Oxycodone Hcl/Acetaminophen 5mg/325mg PO 1 tab Q4H PRN Administration Pain Scale 4-6 Oxycodone/Acetaminophen 2 tab 07/31/23 08:35 08/02/23 21:48 Oxycodone Hcl/Acetaminophen 5mg/325mg PO 2 tab Q4H PRN Administration Pain Scale 7-10 Senna 17.2 mg 07/31/23 20:00 Sennosides 8.6 Mg Tablet PO QHS PRN Constipation Simethicone 80 mg 07/31/23 08:35 Simethicone 80 Mg Tab.Chew PO QID PRN Abdominal Distention Respiratory Oxygen Delivery Method Room Air Oxygen Delivery Method Room Air Oxygen Delivery Method Room Air Cardiology Heart Sounds Strong,Regular Renal Bladder Pattern Continent Catheter Urinary Catheter Date of 07/31/23 Insertion [Urethral] Urinary Catheter Time of 06:30 Insertion [Urethral] Date Urinary Catheter Removed 07/31/23 [Urethral] Time Urinary Catheter 18:45 Discontinued [Urethral]
[2023-08-03] MEDS: LABETALOL HCL 200 MG TABLET 100 MG PO (08:59)
[2023-08-03] MEDS: DOCUSATE SODIUM 100 MG CAPSULE PO (09:00)
[2023-08-03] MEDS: OXYCODONE HCL/ACETAMINOPHEN 5MG/325MG 2 TAB PO ×2 (09:00→15:22)
[2023-08-03 09:06] VITALS: BP 140/80; PULSE 88; RESP 18; TEMP 36.5
--- NOTE | 2023-08-03 11:58 | PM.OBDS ---
DS: Providers Provider Date of admission: 07/31/23 05:46 Primary care physician: Shaikh Thu MD Admitting clinician: Karsten Finnegan Consults: 07/31/23 Consult to Anesthesiology Routine Consulting Provider: Abdoul Hartmann Reason for consultation: Spinal Attending physician on discharge: Aura De La Garza Anticipated date of discharge: 08/03/23 DS: Diagnosis Discharge Diagnosis (1) Hypertension: Assessment and plan: continue labetalol but increase to 200 mg PO twice daily, BP check in one week with Dr. Finnegan Qualifiers: Hypertension type: unspecified Qualified Code(s): I10 - Essential (primary) hypertension (2) Previous section: Assessment and plan: post op instructions given with stated understanding, scripts to patient by RM Plan s/p CSection for hypertension. Doing well. Will continue labetalol 200 mg PO BID. Pain meds provided by Dr. Finnegan. Follow up appointment in one week with Dr. Finnegan for BP check and incision check. Feels well. Has switched to bottle feeding due to high blood sugars in baby. Knows to wear sports bra 26/02 to prevent milk from coming in. Instructed to call for problem or concern as described to patient. OB - DS: Summary Hospital Course Hospital Course: uncomplicated Time spent discussing smoking cessation with patient: 3 to 10 minutes Peripartum Data - Procedures: Procedures Operation Date: 07/31/23 07:30 Actual Procedure Side Surgeon p Repeat Not Applicable Karsten Finnegan DO Peripartum Data - Vaginal Delivery Procedures: Procedures Operation Date: 07/31/23 07:30 Actual Procedure Side Surgeon p Repeat Not Applicable Karsten Finnegan DO Complications complications: none Delivery method: section Gender: female Discharge plan: home Status at Discharge Cognitive/behavioral status at discharge: normal Functional status at discharge: independent ambulation Time Spent with Patient Time attestation: Total time spent providing and/or coordinating discharge services: Time spent: less than 30 minutes Specific discharge activities: previously discussed with patient and with stated understanding Exam Narrative Exam Narrative: voicing no complaints Constitutional Vital Signs, click to edit/add: Last Vital Signs Temp 97.7 F 08/03/23 09:06 Pulse 88 08/03/23 09:06 Resp 18 08/03/23 09:06 BP 140/80 08/03/23 09:06 Pulse Ox 96 07/31/23 09:30 O2 Del Method Room Air 08/03/23 09:06 Documenting provider has reviewed patient's vital signs: yes Common normals: no apparent distress, oriented x3, no limitations, alert and well nourished General appearance: cooperative, comfortable and well kempt HENMT Common normals: normocephalic and head/scalp atraumatic Eye Pupil: PERRL and accommodation reflex normal Neck & C-Spine Common normals: full ROM and supple Respiratory Common normals: normal respiratory effort Cardio Common normals: regular rate and regular rhythm GI Common normals: Normal to inspection, nondistended, normoactive bowel sounds present, soft to palpation and non-tender Common normals: no CVA tenderness Extremity Common normals: normal to inspection, full ROM and no calf tenderness Neuro Common normals: oriented x3, CN's II-XII intact bilaterally, moves all extremities, no focal motor deficits and no sensory deficits noted Psych Common normals: mental status grossly normal, thought process normal, cooperative and activity/motor behavior normal Discharge Plan Discharge Disposition: Home, Self-Care Discharge Medications: New ibuprofen 800 mg tablet 800 mg PO Q8H PRN (Reason: pain) 14 Days Qty: 40 0RF oxycodone-acetaminophen [Percocet] 5-325 mg tablet 1 tab PO Q6H PRN (Reason: pain) 7 Days Qty: 28 0RF Continued omeprazole 20 mg capsule,delayed release(DR/EC) 20 mg PO DAILY PRN (Reason: heartburn) Complete 14 mg iron- 400 mcg tablet 1 tab PO DAILY labetalol 200 mg tablet 200 mg PO BID Activity: resume usual activities as tolerated Activity Detail: no sex no bathtub no driving no lifting more than 5 pounds for six weeks, may walk for exercise, may shower, limit exposure to public as still immunocompromised from Diet: regular diet Patient Instructions: Hypertension (DC), (DC) Activity Restrictions/Additional Instructions: as above Forms: Portal Instructions Follow Up Appointments: needs to see Dr. Finnegan in one week for incision check and blood pressure check Discharge location: home
== END 2023-08-03 15:30 | disposition home or self-care (01) | DRG 540 ==
PROVIDERS: Admitting Provider Obstetrics & Gynecology; PCP Internal Medicine; Visit Provider Obstetrics & Gynecology
PROC: 10D00Z1 Extraction of Products of Conception, Low, Open Approach (ICD-10-PCS; CPT 59514; principal; 2023-07-31 07:30)
DX: O10.92 Unspecified pre-existing hypertension complicating childbirth (principal); O34.211 Maternal care for low transverse scar from previous cesarean delivery; Z3A.37 37 weeks gestation of pregnancy; Z37.0 Single live birth
CPT/HCPCS: 36415; 51702; 59025; 80307; 81001; 85007; 85025; 85027; 86850; 86900; 86901; 88307; 96372; 96374; 96375; 96376; J0702